=== PATIENT | female | born 1995 | race Caucasian/White ===

== ENCOUNTER 2016-07-06 16:04 | Emergency (ER) | payer MEDICAID ==
[2016-07-06 16:40] VITALS: O2SAT 99
[2016-07-06] MEDS ORDERED: Tylenol #3 Tablet PO ONE (18:04)
--- NOTE | 2016-07-06 18:04 | ERPHSYRPT ---
- History of Present Illness Time Seen by Provider: 07/06/16 16:50 Source: patient Exam Limitations: clinical condition Patient Subjective Stated Complaint: PT STATES ABOUT 2 HOURS AGO SHE FELL THROUGH HER PORCH AND HAS PAIN TO LEFT ANKLE WITH NUMBNESS TO TOP OF LEFT FOOT, HAS NOT TAKEN ANY HTING FOR PAIN Triage Nursing Assessment: PT ALERT, RESP EASY, SKIN W/D PINK. PT ABLE TO WALK IN WITH A LIMB,. NO SWELLING OR BRUISING TO ANKLE, MOVES TOES WELL , STRONG PULSE, PT TXTING ON PHONE DURING TRIAGE Physician History: PATIENT FELL THROUGH THE FLOOR OF HER PORCH SUSTAINED INJURY TO HER LEFT FOOT, ANKLE, AND COVINGTON. HAS ANKLE SWELLING AND PAIN UPON WEIGHT BEARING. Method of Injury: direct blow Occurred: hours ago Quality: constant Severity of Pain-Max: moderate Severity of Pain-Current: moderate Lower Extremities Pain: leg: left, foot: left, ankle: left Modifying Factors: Improves With: movement Associated Symptoms: other (PAIN UPON WEIGHT BEARING) Allergies/Adverse Reactions: [email or web address] Allergy (Uncoded 07/06/16 16:41) Home Medications: Paroxetine HCl [Paxil] 20 mg DAILY 07/06/16 [History] Hx Tetanus, Diphtheria Vaccination/Date Given: No Hx Influenza Vaccination/Date Given: No Hx Pneumococcal Vaccination/Date Given: No Immunizations Up to Date: Yes - Review of Systems Constitutional: No Fever, No Chills Eyes: No Symptoms Ears, Nose, & Throat: No Symptoms Respiratory: No Symptoms, No Cough, No Dyspnea Cardiac: No Symptoms, No Chest Pain, No Edema, No Syncope Abdominal/Gastrointestinal: No Abdominal Pain, No Nausea, No Vomiting, No Diarrhea Genitourinary Symptoms: No Dysuria Musculoskeletal: Injury, Joint Pain, Joint Swelling, No Back Pain, No Neck Pain Skin: No Rash Neurological: No Dizziness, No Focal Weakness, No Sensory Changes Psychological: No Symptoms Endocrine: No Symptoms All Other Systems: Reviewed and Negative - Past Medical History Pertinent Past Medical History: Yes Neurological History: Migraines Psycho-Social History: Depression Other Medical History: CHRONIC BACK PAIN - Past Surgical History Past Surgical History: No - Social History Smoking Status: Never smoker Exposure to second hand smoke: No Drug Use: none Patient Lives Alone: No - Female History Hx Last Menstrual Period: JUNE Hx Now: Yes ( due July 2013) - Nursing Vital Signs Nursing Vital Signs: Initial Vital Signs Temperature 98.0 F Temperature Source Oral Pulse Rate 100 Respiratory Rate 16 Blood Pressure [Right Arm] 144/60 Pain Intensity 10 - Physical Exam General Appearance: no apparent distress, alert Cardiovascular/Respiratory Exam: normal breath sounds Back Exam: No vertebral tenderness Legs Exam: left leg: soft tissue tenderness (DISTAL LEFT COVINGTON, NO SWELLING OR REBOUND TENDERNESS) Ankle Exam: left ankle: limited range of motion, pain, soft tissue tenderness, swelling (NO ECCHYMOSIS, DEFORMITY, NO JOINT LAXITY UPON VARUS/VALGUS STRESS) Foot Exam: left foot: soft tissue tenderness (PROXIMAL LEFT FOOT, NO ECCHYMOSIS , PEDIS PULSE 2+), swelling Neuro/Tendon Exam: normal sensation, normal motor functions Mental Status Exam: alert, oriented x 3, cooperative Skin Exam: normal color, warm, dry SpO2: 99 Oxygen Delivery: Room Air - Radiology Exams Left Ankle X-ray Interpretation: Interpreted by me, Negative, No Fracture Left Foot X-ray Interpretation: Interpreted by me, Negative, No Fracture Left Lower Leg X-ray Interpretation: Interpreted by me, Negative, No Fracture Ordered Tests: Active Orders 24 hr Category Date Time Status Crutches STAT Care 07/06/16 18:07 Ordered Splint STAT Care 07/06/16 18:05 Ordered ANKLE (3 VIEWS) Stat Exams 07/06/16 17:10 Taken FOOT (MINIMUM 3 VIEWS) Stat Exams 07/06/16 17:10 Taken LOWER LEG Stat Exams 07/06/16 17:11 Taken Medication Summary Discontinued Medications Generic Name Dose Route Start Last Admin Trade Name Freq PRN Reason Stop Dose Admin Acetaminophen/Codeine Phosphate 1 tab 07/06/16 18:04 Tylenol #3 Tablet PO 07/06/16 18:05 STAT ONE - Progress Progress: pain not gone completely Progress Note: 07/06/16 18:15 PATIENT GIVEN VELCRO ANKLE SPLINT, CRUTCHES Counseled pt/family regarding: diagnosis, need for follow-up, rad results - Departure Time of Disposition: 18:25 Departure Disposition: Home Clinical Impression: CONTUSION/STRAIN LEFT ANKLE/FOOT Condition: Stable Critical Care Time: No Additional Instructions: AMBULATE WITH CRUTCHES NONWEIGHT BEARING LEFT LEG FOR 5-7 DAYS. WEAR VELCRO ANKLE SPLINT FOR COMFORT. REMOVE SPLINT AND APPLY ICE OVER FOOT AND ANKLE SWELLING EVERY 4 HOURS, 30 MINUTES FOR 48 HOURS. TYLENOL #3 EVERY 4 HOURS FOR PAIN NEEDED FOR SEVERE PAIN. MOTRIN 600MG EVERY 6 HOURS FOR MILD TO MODERATE PAIN. Prescriptions: Ibuprofen 600 mg PO Q6H PRN PRN #15 tablet PRN Reason: Pain Codeine Phosphate/APAP #3 [Tylenol #3 Tablet] 1 tab PO Q2H/PRN PRN #10 tablet PRN Reason: Pain
[2016-07-06] MEDS ORDERED: Tylenol #3 Tablet ONE (18:16)
[2016-07-06 18:33] VITALS: BP 130/68; PULSE 92
--- NOTE | 2016-07-07 08:41 | XRAY ---
Indication: Pain following fall. Comparison: September 11, 2014. 3 views of the left ankle demonstrates stable tiny heel spurs. No new/acute bony, articular, or soft tissue abnormalities.
--- NOTE | 2016-07-07 08:41 | XRAY ---
Indication: Pain and numbness following fall. Comparison: November 02, 2009. 3 nonweightbearing views of the left foot again demonstrates tiny heel spurs. No new/acute bony, articular, or soft tissue abnormalities.
--- NOTE | 2016-07-07 08:44 | XRAY ---
Indication: Pain following fall. Comparison: None 2 views of the left lower leg obtained. No bony, articular, or soft tissue abnormalities.
== END 2016-07-06 18:33 | disposition home or self-care (01) ==
LOC: ED 16:04
DX: S90.02XA Contusion of left ankle, initial encounter (principal); S93.402A Sprain of unspecified ligament of left ankle, initial encounter; S93.602A Unspecified sprain of left foot, initial encounter; S90.32XA Contusion of left foot, initial encounter; W13.3XXA Fall through floor, initial encounter
CPT/HCPCS: 73590; 73610; 73630; 99283

== ENCOUNTER 2018-12-27 21:30 | Emergency (ER) | payer MEDICAID, OTHER ==
--- NOTE | 2018-12-27 21:33 | ERPHSYRPT ---
- History of Present Illness Time Seen by Provider: 12/27/18 21:33 Historian: patient Exam Limitations: no limitations Physician History: 23 y/o morbidly obese white female presents with 2 to 3 weeks bilat lower abd pain. nausea intermittently present. no menstrual period in 5 months. pt has had a btl in past. no diarrhea, no vaginal discharge no urinary sx. no fever. Timing/Duration: week(s) (2 to 3) Abdominal Pain Onset Location: RLQ, LLQ, suprapubic Pain Radiation: no radiation Severity of Pain-Max: mild Severity of Pain-Current: mild Modifying Factors: Improves With: nothing Associated Symptoms: nausea, No diarrhea, No fever/chills, No headache, No shortness of breath, No vomiting, No weakness Previous symptoms: no prior history Allergies/Adverse Reactions: [email or web address] Allergy (Uncoded 12/27/18 21:50) Hx Tetanus, Diphtheria Vaccination/Date Given: No Hx Influenza Vaccination/Date Given: No Hx Pneumococcal Vaccination/Date Given: No - Review of Systems Constitutional: No Symptoms Eyes: No Symptoms Ears, Nose, & Throat: No Symptoms Respiratory: No Symptoms Cardiac: No Symptoms Abdominal/Gastrointestinal: Abdominal Pain (bilat lower quadrants), Nausea, No Vomiting, No Diarrhea Genitourinary Symptoms: No Symptoms Musculoskeletal: No Symptoms Skin: No Symptoms Neurological: No Symptoms Psychological: No Symptoms Endocrine: No Symptoms Hematologic/Lymphatic: No Symptoms Immunological/Allergic: No Symptoms All Other Systems: Reviewed and Negative - Past Medical History Pertinent Past Medical History: Yes Neurological History: Migraines ENT History: No Pertinent History Cardiac History: No Pertinent History Respiratory History: No Pertinent History Endocrine Medical History: No Pertinent History Musculoskeletal History: No Pertinent History GI Medical History: No Pertinent History History: No Pertinent History Psycho-Social History: Depression Female Reproductive Disorders: No Pertinent History Other Medical History: CHRONIC BACK PAIN - Past Surgical History Past Surgical History: No Neuro Surgical History: No Pertinent History Cardiac: No Pertinent History Respiratory: No Pertinent History Gastrointestinal: No Pertinent History Genitourinary: No Pertinent History Musculoskeletal: No Pertinent History Female Surgical History: No Pertinent History - Social History Smoking Status: Never smoker Exposure to second hand smoke: No Drug Use: none Patient Lives Alone: No - Nursing Vital Signs Nursing Vital Signs: Initial Vital Signs Temperature 98.6 F 12/27/18 21:38 Pulse Rate 99 H 12/27/18 21:38 Respiratory Rate 18 12/27/18 21:38 Blood Pressure 162/107 12/27/18 21:38 O2 Sat by Pulse Oximetry 98 12/27/18 21:38 Pain Scale Pain Intensity 10 - Physical Exam General Appearance: no apparent distress, alert, anxiety Eye Exam: PERRL/EOMI, eyes nml inspection Ears, Nose, Throat Exam: normal ENT inspection, moist mucous membranes Neck Exam: normal inspection, non-tender, supple, full range of motion Respiratory Exam: normal breath sounds, lungs clear, airway intact, No chest tenderness, No respiratory distress Cardiovascular Exam: regular rate/rhythm, normal heart sounds, normal peripheral pulses Gastrointestinal/Abdomen Exam: soft, normal bowel sounds, tenderness (mild bilat lower quad), guarding, No rebound Pelvic Exam: not done Rectal Exam: not done Back Exam: normal inspection, normal range of motion, No CVA tenderness, No vertebral tenderness Extremity Exam: normal inspection, normal range of motion, pelvis stable Neurologic Exam: alert, oriented x 3, cooperative, grape picker II-XII nml as tested, normal mood/affect Skin Exam: normal color, warm, dry Lymphatic Exam: No adenopathy SpO2 Interpretation: normal O2 Delivery: Room Air Ordered Tests: Active Orders 24 hr Category Date Time Status IV Insertion STAT Care 12/27/18 21:57 Active ABDOMEN AND PELVIS W/0 CONTRAS [CT] Stat Exams 12/27/18 21:58 Taken AMYLASE Stat Lab 12/27/18 22:00 Completed CBC W DIFF Stat Lab 12/27/18 22:00 Completed CMP Stat Lab 12/27/18 22:00 Completed CULTURE,URINE Stat Lab 12/27/18 22:00 Received HCG,QUALITATIVE URINE Stat Lab 12/27/18 22:00 Completed LIPASE Stat Lab 12/27/18 22:00 Completed Lactic Acid Stat Lab 12/27/18 22:00 Completed UA W/RFX UR CULTURE Stat Lab 12/27/18 22:00 Completed Medication Summary Generic Name Dose Route Start Last Admin Trade Name Freq PRN Reason Stop Dose Admin Ceftriaxone Sodium/Dextrose 1 g in 50 mls @ 100 mls/hr 12/27/18 23:50 23:52 Rocephin 1 Gm-D5w 50 Ml Bag IV 12/28/18 00:19 100 mls/hr STAT STA 100 mls/hr Administration Discontinued Medications Generic Name Dose Route Start Last Admin Trade Name Derik PRN Reason Stop Dose Admin Sodium Chloride 1,000 mls @ 999 mls/hr 12/27/18 21:57 12/27/18 22:11 Sodium Chloride 0.9% 1000 Ml IV 12/27/18 22:57 999 mls/hr .Q1H1M STA Administration Sodium Chloride Confirm 12/27/18 22:05 Sodium Chloride 0.9% 1000 Ml Administered 12/27/18 22:06 Dose 1,000 mls @ ud .ROUTE .STK-MED ONE Ceftriaxone Sodium/Dextrose Confirm 12/27/18 23:51 Rocephin 1 Gm-D5w 50 Ml Bag Administered 12/27/18 23:52 Dose 1 g in 50 mls @ ud IV .STK-MED ONE Ondansetron HCl 4 mg 12/27/18 21:57 12/27/18 22:10 Zofran 4 Mg/2 Ml Vial IV 12/27/18 21:58 4 mg STAT ONE Administration Ondansetron HCl Confirm 12/27/18 22:05 Zofran 4 Mg/2 Ml Vial Administered 12/27/18 22:06 Dose 4 mg .ROUTE .STK-MED ONE Lab/Rad Data: Laboratory Result Diagrams 12/27/18 22:00 12/27/18 22:00 Laboratory Results 12/27/18 12/27/18 12/27/18 Range/Units 22:00 22:00 22:00 WBC (4.0-10.5) K/mm3 RBC (4.1-5.4) M/mm3 Hgb (12.0-16.0) gm/dl Hct (35-47) % MCV (78-100) fl MCH (26-32) pg MCHC (32-36) g/dl RDW (11.5-14.0) % Plt Count (150-450) K/mm3 MPV (6-9.5) fl Gran % (36.0-66.0) % Eos # (Auto) (0-0.5) Absolute Lymphs (auto) (1.0-4.6) Absolute Monos (auto) (0.0-1.3) Lymphocytes % (24.0-44.0) % Monocytes % (0.0-12.0) % Eosinophils % (0.00-5.0) % Basophils % (0.0-0.4) % Absolute Granulocytes (1.4-6.9) Basophils # (0-0.4) Sodium 139 (137-145) mmol/L Potassium 3.8 (3.5-5.1) mmol/L Chloride 104 (98-107) mmol/L Carbon Dioxide 26 (22-30) mmol/L Anion Gap 13.1 (5-15) MEQ/L BUN 17 (7-17) mg/dL Creatinine 0.66 (0.52-1.04) mg/dL Estimated GFR > 60.0 ML/MIN Glucose 90 (74-106) mg/dL Lactic Acid (0.4-2.0) Calcium 9.4 (8.4-10.2) mg/dL Total Bilirubin 0.30 (0.2-1.3) mg/dL AST 23 (14-36) U/L ALT 22 (0-35) U/L Alkaline Phosphatase 87 (38-126) U/L Serum Total Protein 8.6 H (6.3-8.2) g/dL Albumin 4.4 (3.5-5.0) g/dL Amylase 65 (30-110) U/L Lipase 53 (23-300) U/L Urine Color YELLOW (YELLOW) Urine Appearance CLOUDY (CLEAR) Urine pH 5.0 (5-6) Ur Specific Jefferson 1.026 (1.005-1.025) Urine Protein 100 (Negative) Urine Ketones NEGATIVE (NEGATIVE) Urine Blood LARGE (0-5) Norm/ul Urine Nitrite POSITIVE (NEGATIVE) Urine Bilirubin NEGATIVE (NEGATIVE) Urine Urobilinogen NEGATIVE (0-1) mg/dL Ur Leukocyte Esterase LARGE (NEGATIVE) Urine WBC (Auto) >100 (0-5) /HPF Urine RBC (Auto) >101 (0-2) /HPF U Epithel Cells (Auto) RARE (FEW) /HPF Urine Bacteria (Auto) MODERATE (NEGATIVE) /HPF Urine Mucus (Auto) SLIGHT (NEGATIVE) /HPF Urine Yeast (Budding) Few (NEGATIVE) /HPF Urine Culture Reflexed YES (NO) Urine Glucose NEGATIVE (NEGATIVE) mg/dL Urine HCG, Qual NEGATIVE (Negative) 12/27/18 12/27/18 Range/Units 22:00 22:00 WBC 13.6 H (4.0-10.5) K/mm3 RBC 4.81 (4.1-5.4) M/mm3 Hgb 12.9 (12.0-16.0) gm/dl Hct 40.0 (35-47) % MCV 83.2 (78-100) fl MCH 26.8 (26-32) pg MCHC 32.3 (32-36) g/dl RDW 14.0 (11.5-14.0) % Plt Count 364 (150-450) K/mm3 MPV 9.7 H (6-9.5) fl Gran % 76.2 H (36.0-66.0) % Eos # (Auto) 0.09 (0-0.5) Absolute Lymphs (auto) 2.32 (1.0-4.6) Absolute Monos (auto) 0.77 (0.0-1.3) Lymphocytes % 17.1 L (24.0-44.0) % Monocytes % 5.7 (0.0-12.0) % Eosinophils % 0.7 (0.00-5.0) % Basophils % 0.3 (0.0-0.4) % Absolute Granulocytes 10.34 H (1.4-6.9) Basophils # 0.04 (0-0.4) Sodium (137-145) mmol/L Potassium (3.5-5.1) mmol/L Chloride (98-107) mmol/L Carbon Dioxide (22-30) mmol/L Anion Gap (5-15) MEQ/L BUN (7-17) mg/dL Creatinine (0.52-1.04) mg/dL Estimated GFR ML/MIN Glucose (74-106) mg/dL Lactic Acid 1.5 (0.4-2.0) Calcium (8.4-10.2) mg/dL Total Bilirubin (0.2-1.3) mg/dL AST (14-36) U/L ALT (0-35) U/L Alkaline Phosphatase (38-126) U/L Serum Total Protein (6.3-8.2) g/dL Albumin (3.5-5.0) g/dL Amylase (30-110) U/L Lipase (23-300) U/L Urine Color (YELLOW) Urine Appearance (CLEAR) Urine pH (5-6) Ur Specific Jefferson (1.005-1.025) Urine Protein (Negative) Urine Ketones (NEGATIVE) Urine Blood (0-5) Norm/ul Urine Nitrite (NEGATIVE) Urine Bilirubin (NEGATIVE) Urine Urobilinogen (0-1) mg/dL Ur Leukocyte Esterase (NEGATIVE) Urine WBC (Auto) (0-5) /HPF Urine RBC (Auto) (0-2) /HPF U Epithel Cells (Auto) (FEW) /HPF Urine Bacteria (Auto) (NEGATIVE) /HPF Urine Mucus (Auto) (NEGATIVE) /HPF Urine Yeast (Budding) (NEGATIVE) /HPF Urine Culture Reflexed (NO) Urine Glucose (NEGATIVE) mg/dL Urine HCG, Qual (Negative) - Progress Progress: improved, pain not gone completely, re-examined Progress Note: 12/28/18 00:12 ct abd/pelvis-neg Counseled pt/family regarding: lab results, diagnosis, need for follow-up, rad results - Departure Departure Disposition: Home Clinical Impression: UTI (urinary tract infection) Condition: Stable Critical Care Time: No Referrals: MARIA C DIXON [Primary Care Provider] - Additional Instructions: drink plenty of fluids. follow up with primary doctor for further management Prescriptions: Ciprofloxacin [Cipro 500 MG] 500 mg PO BID #14 tablet
[2018-12-27] MEDS ORDERED: Zofran 4 MG/2 ML VIAL IV ONE (21:57)
[2018-12-27] MEDS ORDERED: Sodium Chloride 0.9% 1000 ML 1,000 ML IV STA (21:57)
[2018-12-27] MEDS ORDERED: Sodium Chloride 0.9% 1000 ML 1,000 ML ONE (22:05)
[2018-12-27] MEDS ORDERED: Zofran 4 MG/2 ML VIAL ONE (22:05)
[2018-12-27 22:16] LABS: BASOPHIL % 0.3 % (0.0-0.4); Basophil (Absolute #) 0.04 (0-0.4); Eosinophil % 0.7 % (0.00-5.0); Eosinophil (Absolute #) 0.09 (0-0.5); Granulocyte Absolute (ANC) 10.34 (1.4-6.9); Granulocytes % 76.2 % (36.0-66.0); Hemoglobin 12.9 gm/dl (12.0-16.0); Lymphocyte (Absolute #) 2.32 (1.0-4.6); Lymphocytes % 17.1 % (24.0-44.0); Mean Cell Volume 83.2 fl (78-100); Mean Corpuscular Hemoglobin 26.8 pg (26-32); Mean Corpuscular Hgb Concent. 32.3 g/dl (32-36); Mean Platelet Volume 9.7 fl (6-9.5); Monocyte (Absolute #) 0.77 (0.0-1.3); Monocytes % 5.7 % (0.0-12.0); Platelet Count 364 K/mm3 (150-450); Red Blood Count 4.81 M/mm3 (4.1-5.4); White Blood Count 13.6 K/mm3 (4.0-10.5)
[2018-12-27 22:28] LABS: SODIUM 139 mmol/L (137-145)
[2018-12-27 22:37] LABS: Appearance CLOUDY (CLEAR); Bacteria MODERATE /HPF (NEGATIVE); Bilirubin NEGATIVE (NEGATIVE); Blood LARGE Ery/ul (0-5); Epithelial Cells RARE /HPF (FEW); Glucose NEGATIVE (NEGATIVE); Ketones NEGATIVE (NEGATIVE); Leukocyte Esterase LARGE (NEGATIVE); Mucus SLIGHT /HPF (NEGATIVE); Nitrite POSITIVE (NEGATIVE); Protein,Urine Dip 100 (Negative); Specific Gravity 1.026 (1.005-1.025); Urobilinogen NEGATIVE mg/dL (0-1); WBC >100 /HPF (0-5)
[2018-12-27 22:38] LABS: Budding Yeast Few /HPF (NEGATIVE); RBC >101 /HPF (0-2)
[2018-12-27 23:18] LABS: ALBUMIN 4.4 g/dL (3.5-5.0); ALKALINE PHOSPHATASE 87 U/L (38-126); AMYLASE 65 U/L (30-110); ANION GAP 13.1 MEQ/L (5-15); BLOOD UREA NITROGEN 17 mg/dL (7-17); CHLORIDE 104 mmol/L (98-107); Calcium 9.4 mg/dL (8.4-10.2); Carbon Dioxide 26 mmol/L (22-30); Creatinine 1 0.66 mg/dL (0.52-1.04); Glucose 90 mg/dL (74-106); LIPASE 53 U/L (23-300); Potassium 3.8 mmol/L (3.5-5.1); SGOT/AST 23 U/L (14-36); SGPT/ALT 22 U/L (0-35); Total Protein 8.6 g/dL (6.3-8.2)
[2018-12-27] MEDS ORDERED: ROCEPHIN 1 Gm-D5w 50 ml Bag** 1 G/50 ML IVPB IV STA (23:50)
[2018-12-27] MEDS ORDERED: ROCEPHIN 1 Gm-D5w 50 ml Bag** 1 G/50 ML IVPB IV ONE (23:51)
[2018-12-28 00:31] VITALS: BP 118/77; PULSE 112; O2SAT 98
--- NOTE | 2018-12-28 09:44 | XRAY ---
Exam: CT of the abdomen and pelvis without IV contrast from 12/27/2018. CTDI: 28.13 mGy. Comparison: CT of the abdomen and pelvis from 04/16/2015. Indication: 23-year-old female with lower abdominal pain 2 weeks associated with nausea. White blood cell count is mildly elevated at 13,600. The patient has a history of prior tubal ligation and 2 prior sections. Technique: Non-IV contrast axial images were obtained through the abdomen and pelvis. Reconstructed coronal and sagittal images were created and reviewed. Findings: The patient is morbidly obese. The CT machine grainer image reveals minimal rotary dextroscoliosis centered at L1. The lung bases reveal a calcified granuloma within the medial aspect of the left posterior lung sulcus. There are also at least 3 small granulomatous calcifications within the left infrahilar projection. The remainder of the lung bases appears clear. Assessment of the solid organs is limited without the use of IV contrast. The liver has a prominent inferior extension of the right lobe representing a normal variant (Crispin's lobe). The remainder of the liver appears grossly unremarkable. No intrahepatic biliary duct distention is seen. The gallbladder is minimally distended and reveals no dense calcifications within it. Greatest transverse diameter of the spleen is 14.9 cm suggesting mild splenomegaly. No focal splenic mass is seen. I believe there is a small round splenule adjacent to the medial aspect of the lower portion of the spleen on axial image #29. This is unchanged. The pancreas and adrenal glands appear unremarkable. The kidneys are unremarkable size and shape. No renal calculi or hydronephrosis is seen. The right kidney axis is more transverse than usually seen. However, this is not significant. No gross renal mass is seen. The ureters appear of normal diameter without ureterolith. The abdominal aorta is of normal diameter. No abnormal retroperitoneal lymphadenopathy is seen. No free intraperitoneal air or ventral abdominal wall hernia is seen. Some air is seen within the appendix on axial images #43 through #46. I see no findings of acute appendicitis. There is no evidence of bowel obstruction or bowel wall thickening. Some scattered stool is seen throughout the colon. No suspicious fluid collection or free intraperitoneal fluid is seen. The uterus is anteflexed and tilted mildly to the left of midline. Both ovaries are identified and reveal no significant abnormality. No other no abnormal pelvic adnexal mass or enlarged pelvic lymph nodes are seen. The urinary bladder appears unremarkable. The inguinal and femoral regions appear unremarkable. The skeleton reveals no acute fracture or aggressive bone lesion. In addition to the minimal scoliosis, I believe there is some early degenerative disc disease at L4-L5 and mild bilateral facet joint arthropathy at L5-S1. There is also mild to moderate anterior lateral vertebral endplate spurring within the visualized lower thoracic spine. Impression: 1. No acute process is seen within the abdomen or pelvis. The appendix appears unremarkable, and I see no evidence of ovarian cyst or inflammatory changes. 2. Mild splenomegaly, old healed granulomatous disease at the left lung base, and a Crispin's lobe configuration of the right lobe of the liver (normal variant) are seen. 3. Skeletal findings, as discussed above. 4. Morbid obesity.
== END 2018-12-28 00:37 | disposition home or self-care (01) ==
LOC: ED 21:30
DX: N39.0 Urinary tract infection, site not specified (principal)
CPT/HCPCS: 36000; 36415; 74176; 80053; 81001; 82150; 83605; 83690; 84703; 85025; 87077; 87086; 87186; 96360; 96365; 96374; 99284; J0696; J2405

== ENCOUNTER 2020-05-16 20:13 | Emergency (ER) | payer OTHER ==
[2020-05-16] MEDS ORDERED: BABY ASPIRIN 81 MG CHEW PO ONE (20:16)
--- NOTE | 2020-05-16 20:16 | ERPHSYRPT ---
- History of Present Illness Time Seen by Provider: 05/16/20 20:15 Historian: patient Exam Limitations: no limitations Physician History: This is a morbidly obese 25-year-old white female who was only on depression medication chronically and presents with nonradiating upper sternal central chest pain that is sharp. She is never had this pain in the past. She denies s hortness of breath. She denies cough. She denies fever. Patient states that the level of her discomfort is approximately 7 out of 10 and is relatively constant. Patient has no bleeding or clotting disorders. She has not taking any thing to help relieve her pain. She has no primary cardiac disease. Patient denies any new weight loss medication or treatment. She denies illicit drug use. Timing/Duration: yesterday Activities at Onset: none Quality: sharpness Location: substernal Chest Pain Radiation: no radiation Severity of Pain-Max: moderate Severity of Pain-Current: moderate Modifying Factors: Improves With: nothing Associated Symptoms: denies symptoms Prior Chest Pain/Cardiac Workup: no prior chest pain, no prior cardiac workup Nitro Today/Relief: no nitro taken today Aspirin Treatment Today: no aspirin today Allergies/Adverse Reactions: jalapenos Allergy (Mild, Uncoded 05/16/20 20:14) Home Medications: Venlafaxine HCl [Venlafaxine HCl ER] 150 mg PO DAILY 05/16/20 [History] Hx Tetanus, Diphtheria Vaccination/Date Given: No Hx Influenza Vaccination/Date Given: No Hx Pneumococcal Vaccination/Date Given: No Travel Risk - International Travel Have you traveled outside of the country in past 3 weeks: No - Coronavirus Screening Are you exhibiting any of the following symptoms?: No Close contact with a COVID-19 positive Pt in past 14-21 Days: No - Review of Systems Constitutional: No Symptoms Eyes: No Symptoms Ears, Nose, & Throat: No Symptoms Respiratory: No Symptoms Cardiac: Chest Pain Abdominal/Gastrointestinal: No Symptoms Genitourinary Symptoms: No Symptoms Musculoskeletal: No Symptoms Skin: No Symptoms Neurological: No Symptoms Psychological: No Symptoms Endocrine: No Symptoms Hematologic/Lymphatic: No Symptoms Immunological/Allergic: No Symptoms All Other Systems: Reviewed and Negative - Past Medical History Pertinent Past Medical History: Yes Neurological History: Migraines ENT History: No Pertinent History Cardiac History: No Pertinent History Respiratory History: No Pertinent History Endocrine Medical History: No Pertinent History Musculoskeletal History: No Pertinent History GI Medical History: No Pertinent History History: No Pertinent History Psycho-Social History: Depression Female Reproductive Disorders: No Pertinent History Other Medical History: CHRONIC BACK PAIN - Past Surgical History Past Surgical History: No Neuro Surgical History: No Pertinent History Cardiac: No Pertinent History Respiratory: No Pertinent History Gastrointestinal: No Pertinent History Genitourinary: No Pertinent History Musculoskeletal: No Pertinent History Female Surgical History: No Pertinent History - Social History Smoking Status: Never smoker Exposure to second hand smoke: No Drug Use: none Patient Lives Alone: No - Nursing Vital Signs Nursing Vital Signs: Initial Vital Signs Temperature 98.6 F 05/16/20 20:18 Pulse Rate 120 H 05/16/20 20:18 Respiratory Rate 24 05/16/20 20:18 Blood Pressure 146/112 05/16/20 20:18 O2 Sat by Pulse Oximetry 97 05/16/20 20:18 Pain Scale Pain Intensity 7 - Physical Exam General Appearance: no apparent distress, alert, anxiety, obese Eye Exam: PERRL/EOMI, eyes nml inspection Ears, Nose, Throat Exam: normal ENT inspection, moist mucous membranes Neck Exam: normal inspection, non-tender, supple, full range of motion Respiratory Exam: normal breath sounds, chest tenderness, lungs clear, airway intact, No respiratory distress Cardiovascular Exam: tachycardia Gastrointestinal/Abdomen Exam: soft, normal bowel sounds, No tenderness Pelvic Exam: not done Rectal Exam: not done Back Exam: normal inspection, normal range of motion, No CVA tenderness, No vertebral tenderness Extremity Exam: normal inspection, normal range of motion, pelvis stable Neurologic Exam: alert, oriented x 3, cooperative, superintendent tests II-XII nml as tested, normal mood/affect, nml cerebellar function, nml station & gait, sensation nml Skin Exam: normal color, warm, dry Lymphatic Exam: No adenopathy SpO2 Interpretation: normal O2 Delivery: Room Air - Course Nursing assessment & vital signs reviewed: Yes EKG Interpreted by Me: RATE ([id number]), Sinus Tach, NORMAL AXIS, prolonged QT interval (Borderline), NORMAL QRS, NORMAL ST-T, Other (No acute ischemic changes. When compared to EKG dated 02/11/2012 today's EKG shows sinus tachycardia that is mild. In addition there is new borderline prolonged QT interval.) Ordered Tests: Active Orders 24 hr Category Date Time Status Prescriptionist STAT Care 05/16/20 20:17 Active EKG-ER Only STAT Care 05/16/20 20:16 Active IV Insertion STAT Care 05/16/20 20:16 Active CHEST 1 VIEW (PORTABLE) Stat Exams 05/16/20 20:16 Taken CHEST WITH CONTRAST [CT] Stat Exams 05/16/20 21:21 Taken CBC W DIFF Stat Lab 05/16/20 20:35 Completed CMP Stat Lab 05/16/20 20:35 Completed D-DIMER QUANTITATIVE Stat Lab 05/16/20 20:35 Completed NT PRO BNP Stat Lab 05/16/20 20:35 Completed PROTIME WITH INR Stat Lab 05/16/20 20:35 Completed TROPONIN Q3H Lab 05/16/20 20:35 Completed TROPONIN Q3H Lab 05/16/20 23:30 Ordered TROPONIN Q3H Lab 05/17/20 02:30 Ordered TROPONIN Q3H Lab 05/17/20 05:30 Ordered TROPONIN Q3H Lab 05/17/20 08:30 Ordered Medication Summary Discontinued Medications Generic Name Dose Route Start Last Admin Trade Name Freq PRN Reason Stop Dose Admin Aspirin 324 mg 05/16/20 20:16 05/16/20 21:14 Baby Aspirin 81 Mg Chew PO 05/16/20 20:17 324 mg STAT ONE Administration Sodium Chloride 500 mls @ 500 mls/hr 05/16/20 21:21 05/16/20 23:03 Sodium Chloride 0.9% 500 Ml IV 05/16/20 22:20 Infused .Q1H ONE Infusion Sodium Chloride Confirm 05/16/20 21:26 Sodium Chloride 0.9% 500 Ml Administered 05/16/20 21:27 Dose 500 mls @ ud IV .STK-MED ONE Morphine Sulfate 2 mg 05/16/20 20:46 05/16/20 21:21 Morphine Sulfate 2 Mg Inj IV 05/16/20 20:47 2 mg STAT ONE Administration Morphine Sulfate Confirm 05/16/20 21:20 Morphine Sulfate 2 Mg Inj Administered 05/16/20 21:21 Dose 2 mg .ROUTE .STK-MED ONE Nitroglycerin 0.4 mg 05/16/20 20:46 05/16/20 21:19 Nitrostat 0.4 Mg (Ed) SL 05/16/20 20:47 0.4 mg STAT ONE Administration Ondansetron HCl 4 mg 05/16/20 20:46 05/16/20 21:21 Zofran 4 Mg/2 Ml Vial IV 05/16/20 20:47 4 mg STAT ONE Administration Ondansetron HCl Confirm 05/16/20 21:20 Zofran 4 Mg/2 Ml Vial Administered 05/16/20 21:21 Dose 4 mg .ROUTE .STK-MED ONE Lab/Rad Data: Laboratory Result Diagrams 05/16/20 20:35 05/16/20 20:35 Laboratory Results 05/16/20 05/16/20 05/16/20 Range/Units 20:35 20:35 20:35 WBC (4.0-10.5) K/mm3 RBC (4.1-5.4) M/mm3 Hgb (12.0-16.0) gm/dl Hct (35-47) % MCV (78-100) fl MCH (26-32) pg MCHC (32-36) g/dl RDW (11.5-14.0) % Plt Count (150-450) K/mm3 MPV (7.5-11.0) fl Gran % (36.0-66.0) % Eos # (Auto) (0-0.5) Absolute Lymphs (auto) (1.0-4.6) Absolute Monos (auto) (0.0-1.3) Lymphocytes % (24.0-44.0) % Monocytes % (0.0-12.0) % Eosinophils % (0.00-5.0) % Basophils % (0.0-0.4) % Absolute Granulocytes (1.4-6.9) Basophils # (0-0.4) PT 12.9 H (9.95-12.35) SECONDS INR 1.14 (0.8-3.0) D-Dimer 834 H* (215-500) ng/mL Sodium 138 (137-145) mmol/L Potassium 3.6 (3.5-5.1) mmol/L Chloride 102 (98-107) mmol/L Carbon Dioxide 28 (22-30) mmol/L Anion Gap 12.2 (5-15) MEQ/L BUN 10 (7-17) mg/dL Creatinine 0.75 (0.52-1.04) mg/dL Estimated GFR > 60.0 ML/MIN Glucose 109 H (74-106) mg/dL Calcium 9.8 (8.4-10.2) mg/dL Total Bilirubin 0.20 (0.2-1.3) mg/dL AST 25 (14-36) U/L ALT 23 (0-35) U/L Alkaline Phosphatase 97 (38-126) U/L Troponin I < 0.012 (0.000-0.034) ng/mL NT-Pro-B Natriuret Pep 45.8 (0-450) pg/mL Serum Total Protein 8.1 (6.3-8.2) g/dL Albumin 4.1 (3.5-5.0) g/dL 05/16/20 Range/Units 20:35 WBC 8.1 (4.0-10.5) K/mm3 RBC 4.11 (4.1-5.4) M/mm3 Hgb 10.4 L (12.0-16.0) gm/dl Hct 33.8 L (35-47) % MCV 82.2 (78-100) fl MCH 25.3 L (26-32) pg MCHC 30.8 L (32-36) g/dl RDW 14.5 H (11.5-14.0) % Plt Count 326 (150-450) K/mm3 MPV 8.5 (7.5-11.0) fl Gran % 69.0 H (36.0-66.0) % Eos # (Auto) 0.12 (0-0.5) Absolute Lymphs (auto) 1.80 (1.0-4.6) Absolute Monos (auto) 0.56 (0.0-1.3) Lymphocytes % 22.2 L (24.0-44.0) % Monocytes % 6.9 (0.0-12.0) % Eosinophils % 1.5 (0.00-5.0) % Basophils % 0.4 (0.0-0.4) % Absolute Granulocytes 5.58 (1.4-6.9) Basophils # 0.03 (0-0.4) PT (9.95-12.35) SECONDS INR (0.8-3.0) D-Dimer (215-500) ng/mL Sodium (137-145) mmol/L Potassium (3.5-5.1) mmol/L Chloride (98-107) mmol/L Carbon Dioxide (22-30) mmol/L Anion Gap (5-15) MEQ/L BUN (7-17) mg/dL Creatinine (0.52-1.04) mg/dL Estimated GFR ML/MIN Glucose (74-106) mg/dL Calcium (8.4-10.2) mg/dL Total Bilirubin (0.2-1.3) mg/dL AST (14-36) U/L ALT (0-35) U/L Alkaline Phosphatase (38-126) U/L Troponin I (0.000-0.034) ng/mL NT-Pro-B Natriuret Pep (0-450) pg/mL Serum Total Protein (6.3-8.2) g/dL Albumin (3.5-5.0) g/dL - Progress Progress: improved, re-examined Air Movement: good Progress Note: 05/16/20 20:58 Chest x-ray shows no acute cardiopulmonary process. 05/16/20 23:18 CAT scan of the chest with intravenous contrast shows no pulmonary embolism and no acute cardiopulmonary process. Blood Culture(s) Obtained: No Antibiotics given: No Counseled pt/family regarding: lab results, diagnosis, need for follow-up, rad results - Departure Departure Disposition: Home Clinical Impression: Chest pain Condition: Stable Critical Care Time: No Referrals: MARIA C DIXON [Primary Care Provider] - Additional Instructions: Take your medication as prescribed. Call your primary prescribing physician tomorrow morning to make arrangements for follow-up evaluation and management.
[2020-05-16 20:39] LABS: Absolute Neutrophil Ct (ANC) 5.58 (1.4-6.9); BASOPHIL % 0.4 % (0.0-0.4); Basophil (Absolute #) 0.03 (0-0.4); Eosinophil % 1.5 % (0.00-5.0); Eosinophil (Absolute #) 0.12 (0-0.5); Hematocrit 33.8 % (35-47); Hemoglobin 10.4 gm/dl (12.0-16.0); Lymphocytes % 22.2 % (24.0-44.0); Mean Cell Volume 82.2 fl (78-100); Mean Corpuscular Hemoglobin 25.3 pg (26-32); Mean Corpuscular Hgb Concent. 30.8 g/dl (32-36); Mean Platelet Volume 8.5 fl (7.5-11.0); Monocyte (Absolute #) 0.56 (0.0-1.3); Monocytes % 6.9 % (0.0-12.0); Platelet Count 326 K/mm3 (150-450); Red Blood Count 4.11 M/mm3 (4.1-5.4); Red Cell Distribution Width 14.5 % (11.5-14.0); White Blood Count 8.1 K/mm3 (4.0-10.5)
[2020-05-16] MEDS ORDERED: Nitrostat 0.4 MG (ED) SL ONE (20:46)
[2020-05-16] MEDS ORDERED: MORPHINE SULFATE 2 MG INJ IV ONE (20:46)
[2020-05-16] MEDS ORDERED: Zofran 4 MG/2 ML VIAL IV ONE (20:46)
[2020-05-16 20:57] LABS: INR 1.14 (0.8-3.0); PROTIME 12.9 SECONDS (9.95-12.35)
[2020-05-16 21:11] LABS: ALBUMIN 4.1 g/dL (3.5-5.0); ALKALINE PHOSPHATASE 97 U/L (38-126); ANION GAP 12.2 MEQ/L (5-15); BLOOD UREA NITROGEN 10 mg/dL (7-17); CHLORIDE 102 mmol/L (98-107); Calcium 9.8 mg/dL (8.4-10.2); Carbon Dioxide 28 mmol/L (22-30); Creatinine 1 0.75 mg/dL (0.52-1.04); EST GLOMERULAR FILTRATION RATE > 60.0 ML/MIN; Glucose 109 mg/dL (74-106); NT PRO BNP 45.8 pg/mL (0-450); Potassium 3.6 mmol/L (3.5-5.1); SGOT/AST 25 U/L (14-36); SGPT/ALT 23 U/L (0-35); SODIUM 138 mmol/L (137-145); Total Protein 8.1 g/dL (6.3-8.2)
[2020-05-16] MEDS ORDERED: MORPHINE SULFATE 2 MG INJ ONE (21:20)
[2020-05-16] MEDS ORDERED: Zofran 4 MG/2 ML VIAL ONE (21:20)
[2020-05-16] MEDS ORDERED: Sodium Chloride 0.9% 500 ML 500 ML IV ONE ×2 (21:21→21:26)
[2020-05-16 21:26] VITALS: O2SAT 98
[2020-05-16 23:42] VITALS: BP 121/71; PULSE 113
--- NOTE | 2020-05-17 09:07 | XRAY ---
Indication: Short of breath, chest pain, and elevated d-dimer. Multiple contiguous axial images obtained through the chest using 80 cc Isovue 370 contrast and PE protocol. Comparison: None There is suboptimal opacification of the pulmonary arteries limiting evaluation of the more distal branches. No obvious central pulmonary embolus. Heart is not enlarged. Aorta is normal in course and caliber. Tiny left perihilar calcified nodes. No pathologic mediastinal/hilar lymphadenopathy. Lungs are inflated with minimal left base fibrosis/scarring and left posterior gutter calcified granuloma. No suspicious pulmonary mass, infiltrate, or effusion. Bony thorax intact with minimal degenerative changes throughout the spine. Limited upper abdomen demonstrates mild fatty liver and 15.6 cm splenomegaly. Impression: 1. Pulmonary embolus evaluation limited due to suboptimal opacification. No obvious pulmonary embolus. 2. No acute cardiopulmonary abnormalities. 3. Incidental fatty liver, splenomegaly, and old granulomatous disease. Comment: Preliminary interpretation was made by [facility]. No critical discrepancy.
--- NOTE | 2020-05-17 09:08 | XRAY ---
Indication: Short of breath and chest pain. Comparison: None Portable chest demonstrates normal heart, lungs, and bony thorax.
== END 2020-05-16 23:42 | disposition home or self-care (01) ==
LOC: ED 20:13
DX: R07.9 Chest pain, unspecified (principal); R00.0 Tachycardia, unspecified; E66.9 Obesity, unspecified
CPT/HCPCS: 36000; 36415; 71045; 71260; 80053; 83880; 84484; 85025; 85379; 85610; 93005; 93041; 96360; 96374; 96375; 99285; J2270; J2405; A9270-GY

== ENCOUNTER 2020-10-02 11:27 | Emergency (ER) | payer OTHER ==
--- NOTE | 2020-10-02 11:31 | ERPHSYRPT ---
- History of Present Illness Time Seen by Provider: 10/02/20 11:31 Source: patient Exam Limitations: no limitations Physician History: This is a 25-year-old morbidly obese white female who was walking and twisted her left ankle in a hole prior to arrival to the emergency department. Patient states the pain was severe enough to cause her to have vomiting on 2 different episodes prior to arrival. Patient states it hurts to bear weight. Method of Injury: twisted Occurred: just prior to arrival Quality: constant, aching Severity of Pain-Max: moderate Severity of Pain-Current: moderate Lower Extremities Pain: ankle: left Modifying Factors: Improves With: movement Associated Symptoms: popping sensation, other Allergies/Adverse Reactions: jalapenos Allergy (Mild, Uncoded 10/02/20 11:48) Home Medications: Venlafaxine HCl [Venlafaxine HCl ER] 150 mg PO DAILY 05/16/20 [History] Hx Tetanus, Diphtheria Vaccination/Date Given: No Hx Influenza Vaccination/Date Given: No Hx Pneumococcal Vaccination/Date Given: No Travel Risk - International Travel Have you traveled outside of the country in past 3 weeks: No - Coronavirus Screening Are you exhibiting any of the following symptoms?: No Close contact with a COVID-19 positive Pt in past 14-21 Days: No - Review of Systems Constitutional: No Symptoms Eyes: No Symptoms Ears, Nose, & Throat: No Symptoms Respiratory: No Symptoms Cardiac: No Symptoms Abdominal/Gastrointestinal: No Symptoms Genitourinary Symptoms: No Symptoms Musculoskeletal: Injury (Left ankle) Skin: No Symptoms Neurological: No Symptoms Psychological: No Symptoms Endocrine: No Symptoms Hematologic/Lymphatic: No Symptoms Immunological/Allergic: No Symptoms All Other Systems: Reviewed and Negative - Past Medical History Pertinent Past Medical History: Yes Neurological History: Migraines ENT History: No Pertinent History Cardiac History: No Pertinent History Respiratory History: No Pertinent History Endocrine Medical History: No Pertinent History Musculoskeletal History: No Pertinent History GI Medical History: No Pertinent History History: No Pertinent History Psycho-Social History: Depression Female Reproductive Disorders: No Pertinent History Other Medical History: CHRONIC BACK PAIN - Past Surgical History Past Surgical History: No Neuro Surgical History: No Pertinent History Cardiac: No Pertinent History Respiratory: No Pertinent History Gastrointestinal: No Pertinent History Genitourinary: No Pertinent History Musculoskeletal: No Pertinent History Female Surgical History: No Pertinent History Other Surgical History: c sections x2 - Social History Smoking Status: Never smoker Exposure to second hand smoke: No Drug Use: none Patient Lives Alone: No - Nursing Vital Signs Nursing Vital Signs: Initial Vital Signs Temperature 98.0 F 10/02/20 11:42 Pulse Rate 114 H 10/02/20 11:42 Respiratory Rate 18 10/02/20 11:42 Blood Pressure 168/92 10/02/20 11:42 O2 Sat by Pulse Oximetry 98 10/02/20 11:42 Pain Scale Pain Intensity 10 - Physical Exam General Appearance: no apparent distress, alert, anxiety, obese Eyes, Ears, Nose, Throat Exam: normal ENT inspection, moist mucous membranes Neck Exam: normal inspection, non-tender, supple, full range of motion Cardiovascular/Respiratory Exam: chest non-tender, no respiratory distress Gastrointestinal/Abdominal Exam: non-tender Back Exam: normal inspection, normal range of motion, No CVA tenderness, No vertebral tenderness Hips Exam: bilateral: non-tender, normal inspection, normal range of motion, no evidence of injury Legs Exam: bilateral leg: non-tender, normal inspection, normal range of motion, no evidence of injury Knees Exam: bilateral knee: non-tender, normal inspection, normal range of motion, no evidence of injury Ankle Exam: right ankle: non-tender, normal inspection, normal range of motion, no evidence of injury, left ankle: limited range of motion, soft tissue tenderness, swelling Foot Exam: bilateral foot: non-tender, normal inspection, normal range of motion, no evidence of injury Neuro/Tendon Exam: normal sensation, normal motor functions, normal tendon functions, responds to pain, no evidence tendon injury, No motor deficit, No sensory deficit Mental Status Exam: alert, oriented x 3, cooperative Skin Exam: normal color, warm, dry SpO2 Interpretation: normal O2 Delivery: Room Air - Course Nursing assessment & vital signs reviewed: Yes Ordered Tests: Active Orders 24 hr Category Date Time Status Cirilo Bandage Application -[facility] STAT Care 10/02/20 12:11 Ordered ANKLE (3 VIEWS) Stat Exams 10/02/20 11:55 Completed - Progress Progress: improved, pain not gone completely Progress Note: 10/02/20 12:16 X-ray left ankle reveals no evidence of any acute fracture or dislocation. Counseled pt/family regarding: diagnosis, need for follow-up, rad results - Departure Departure Disposition: Home Clinical Impression: Left ankle sprain Condition: Stable Critical Care Time: No Referrals: ZACK,MARIA C F [Primary Care Provider] - Additional Instructions: Ice pack to left ankle 3 times a day for the next 48 hours. Add ibuprofen 600 mg 3 times a day with food for the next 48 hours. Keep left lower leg elevated above the level of your heart when not up and ambulating. Follow-up with Dr. Krishnamurthy, podiatry in his office for persistent symptoms. Call to make an appointment. Prescriptions: Hydrocodone/APAP 5/325 [Ashley 5/325 mg] 1 each PO Q8H PRN PRN #6 tablet MDD 3 PRN Reason: Pain
[2020-10-02 11:48] VITALS: BP 168/92; PULSE 114; O2SAT 98
--- NOTE | 2020-10-02 12:07 | XRAY ---
Indication: Pain following fall. Comparison: July 06, 2016. 3 view left ankle demonstrates new moderate soft tissue swelling with stable tiny heel spurs. No other bony, articular, or soft tissue abnormalities.
[2020-10-02] MEDS ORDERED: NORCO 5/325 MG PO ONE (12:10)
[2020-10-02] MEDS ORDERED: NORCO 5/325 MG ONE (12:29)
== END 2020-10-02 12:45 | disposition home or self-care (01) ==
LOC: ED 11:27
DX: S93.402A Sprain of unspecified ligament of left ankle, initial encounter (principal); X50.1XXA Overexertion from prolonged static or awkward postures, initial encounter; Y93.89 Activity, other specified; Y92.89 Other specified places as the place of occurrence of the external cause
CPT/HCPCS: 73610; 99283; A9270-GY

== ENCOUNTER 2021-03-15 21:15 | Observation (INO) | payer OTHER ==
[2021-03-15] MEDS ORDERED: Zofran 4 MG/2 ML VIAL IV ONE (21:24)
[2021-03-15] MEDS ORDERED: Sodium Chloride 0.9% 1000 ML 1,000 ML IV STA ×2 (21:24→23:53)
[2021-03-15] MEDS ORDERED: BABY ASPIRIN 81 MG CHEW PO ONE (21:26)
[2021-03-15] MEDS ORDERED: Nitrostat 0.4 MG (ED) SL ONE (21:26)
[2021-03-15] MEDS ORDERED: Zofran 4 MG/2 ML VIAL ONE (21:28)
[2021-03-15] MEDS ORDERED: Sodium Chloride 0.9% 1000 ML 1,000 ML ONE (21:28)
--- NOTE | 2021-03-15 21:34 | ERPHSYRPT ---
- History of Present Illness Time Seen by Provider: 03/15/21 21:29 Historian: patient, EMS Exam Limitations: no limitations Physician History: pt is 25 yr old without CAD Hx but prior heart valve concern on ER visit recently here ( 10 mths ago). No cardiac f/u. but had CP and SOBreath all day today then brief LOC at home and then came by EMS here. Had CT here at prior ER visit for PE rule out. - 10 months ago No prior PE or DVT. + family Hx and Hptn. No abd pain but some Nausea. Abd nontender. Chest clear . ext without edema and neg homans. Heart score is 3 - 1 for Hx, 1 for EKG, 1 for rsk factors. Timing/Duration: today Location: substernal Chest Pain Radiation: no radiation Severity of Pain-Max: moderate Severity of Pain-Current: moderate Modifying Factors: Improves With: nothing Associated Symptoms: nausea, syncope Prior Chest Pain/Cardiac Workup: recently seen/treated Nitro Today/Relief: 0.4 mg x 1, provided by ED Aspirin Treatment Today: 325 mg x 1, provided by ED Allergies/Adverse Reactions: jalapenos Allergy (Mild, Uncoded 03/15/21 21:17) Home Medications: No Reportable Medications [No Reported Medications] 03/15/21 [History] Hx Tetanus, Diphtheria Vaccination/Date Given: No Hx Influenza Vaccination/Date Given: No Hx Pneumococcal Vaccination/Date Given: No Travel Risk - Vaccine Status Have you recieved a Covid-19 vaccination: No - Review of Systems Constitutional: No Fever, No Chills Eyes: No Symptoms Ears, Nose, & Throat: No Symptoms Respiratory: Dyspnea, No Cough Cardiac: Chest Pain, No Edema, No Syncope Abdominal/Gastrointestinal: Nausea, No Abdominal Pain, No Vomiting, No Diarrhea Genitourinary Symptoms: No Dysuria Musculoskeletal: No Back Pain, No Neck Pain Skin: No Rash Neurological: No Dizziness, No Focal Weakness, No Sensory Changes Psychological: No Symptoms Endocrine: No Symptoms Hematologic/Lymphatic: No Symptoms Immunological/Allergic: No Symptoms All Other Systems: Reviewed and Negative - Past Medical History Pertinent Past Medical History: Yes Neurological History: Migraines ENT History: No Pertinent History Cardiac History: No Pertinent History Respiratory History: No Pertinent History Endocrine Medical History: No Pertinent History Musculoskeletal History: No Pertinent History GI Medical History: No Pertinent History History: No Pertinent History Psycho-Social History: Depression Female Reproductive Disorders: No Pertinent History Other Medical History: CHRONIC BACK PAIN - Past Surgical History Past Surgical History: No Neuro Surgical History: No Pertinent History Cardiac: No Pertinent History Respiratory: No Pertinent History Gastrointestinal: No Pertinent History Genitourinary: No Pertinent History Musculoskeletal: No Pertinent History Female Surgical History: No Pertinent History Other Surgical History: c sections x2 - Social History Smoking Status: Never smoker Exposure to second hand smoke: No Drug Use: none Patient Lives Alone: No - Female History Hx Now: No (HCG pending) - Nursing Vital Signs Nursing Vital Signs: Initial Vital Signs Pulse Rate 130 H 03/15/21 21:15 Respiratory Rate 16 03/15/21 21:15 Pain Scale Pain Intensity 4 - Physical Exam General Appearance: no apparent distress, alert Eye Exam: PERRL/EOMI, eyes nml inspection Ears, Nose, Throat Exam: normal ENT inspection, moist mucous membranes Neck Exam: normal inspection, non-tender, supple, full range of motion Respiratory Exam: normal breath sounds, lungs clear, No respiratory distress Cardiovascular Exam: regular rate/rhythm, normal heart sounds Gastrointestinal/Abdomen Exam: soft, No tenderness, No mass Pelvic Exam: deferred Rectal Exam: deferred Back Exam: normal inspection, No CVA tenderness, No vertebral tenderness Extremity Exam: normal inspection, normal range of motion Neurologic Exam: alert, oriented x 3, cooperative, normal mood/affect, sensation nml, No motor deficits Skin Exam: normal color, warm, dry SpO2 Interpretation: normal SpO2: 97 O2 Delivery: Room Air - Course Nursing assessment & vital signs reviewed: Yes EKG Interpreted by Me: Sinus Tach, Non-specific ST Changes, Other (low voltage) - Radiology Exams Chest X-ray Interpretation: Interpreted by me, Reviewed by me, No Pneumothorax, Other (interstitial infiltrates) - CT Exams Chest CT Interpretation: Tele-radiologist Report, No PE Ordered Tests: Active Orders 24 hr Category Date Time Status Process Controls Technician STAT Care 03/15/21 21:27 Active EKG-ER Only STAT Care 03/15/21 21:24 Active IV Insertion STAT Care 03/15/21 21:24 Active IV Insertion-2nd Peripheral STAT Care 03/15/21 22:02 Active Pulse Oximetry (ED) STAT Care 03/15/21 21:26 Active CHEST 1 VIEW (PORTABLE) Stat Exams 03/15/21 21:25 Taken CHEST WITH CONTRAST [CT] Stat Exams 03/15/21 22:24 Taken CBC Stat Lab 03/15/21 00:39 Completed CBC W DIFF Stat Lab 03/15/21 21:40 Completed CMP Stat Lab 03/15/21 21:40 Completed D-DIMER QUANTITATIVE Stat Lab 03/15/21 21:41 Completed HCG QUALITATIVE,SERUM Stat Lab 03/15/21 21:40 Completed Lactic Acid Stat Lab 03/15/21 21:24 Completed NT PRO BNP Stat Lab 03/15/21 21:41 Completed TROPONIN Q3H Lab 03/15/21 21:40 Completed TROPONIN Q3H Lab 03/16/21 00:39 Received TROPONIN Q3H Lab 03/16/21 03:30 Ordered TROPONIN Q3H Lab 03/16/21 06:30 Ordered TROPONIN Q3H Lab 03/16/21 09:30 Ordered UA W/RFX UR CULTURE Stat Lab 03/15/21 22:30 Completed Medication Summary Generic Name Dose Route Start Last Admin Trade Name Freq PRN Reason Stop Dose Admin Sodium Chloride 1,000 mls @ 999 mls/hr 03/15/21 23:53 03/16/21 00:06 Sodium Chloride 0.9% 1000 Ml IV 03/16/21 00:53 999 mls/hr .Q1H1M STA Administration Discontinued Medications Generic Name Dose Route Start Last Admin Trade Name Freq PRN Reason Stop Dose Admin Aspirin 324 mg 03/15/21 21:26 03/15/21 21:31 Aspirin 81 Mg Tab.Chew PO 03/15/21 21:27 324 mg STAT ONE Administration Sodium Chloride 1,000 mls @ 999 mls/hr 03/15/21 21:24 03/15/21 22:30 Sodium Chloride 0.9% 1000 Ml IV 03/15/21 22:24 Infused .Q1H1M STA Infusion Sodium Chloride Confirm 03/15/21 21:28 Sodium Chloride 0.9% 1000 Ml Administered 03/15/21 21:29 Dose 1,000 mls @ ud .ROUTE .STK-MED ONE Sodium Chloride Confirm 03/16/21 00:05 Sodium Chloride 0.9% 1000 Ml Administered 03/16/21 00:06 Dose 1,000 mls @ ud .ROUTE .STK-MED ONE Nitroglycerin 0.4 mg 03/15/21 21:26 03/15/21 21:31 Nitroglycerin 0.4 Mg (Ed) 0.4 Mg Tab.Subl SL 03/15/21 21:27 0.4 mg STAT ONE Administration Ondansetron HCl 4 mg 03/15/21 21:24 03/15/21 21:29 Ondansetron Hcl 4 Mg/2 Ml Vial IV 03/15/21 21:25 4 mg STAT ONE Administration Ondansetron HCl Confirm 03/15/21 21:28 Ondansetron Hcl 4 Mg/2 Ml Vial Administered 03/15/21 21:29 Dose 4 mg .ROUTE .STK-MED ONE Lab/Rad Data: Laboratory Result Diagrams 03/15/21 21:40 03/15/21 21:40 Laboratory Results 03/15/21 03/15/21 03/15/21 Range/Units 22:30 22:04 21:41 WBC (4.0-10.5) K/mm3 RBC (4.1-5.4) M/mm3 Hgb (12.0-16.0) gm/dl Hct (35-47) % MCV (78-100) fl MCH (26-32) pg MCHC (32-36) g/dl RDW (11.5-14.0) % Plt Count (150-450) K/mm3 MPV (7.5-11.0) fl Gran % (36.0-66.0) % Eos # (Auto) (0-0.5) Absolute Lymphs (auto) (1.0-4.6) Absolute Monos (auto) (0.0-1.3) Lymphocytes % (24.0-44.0) % Monocytes % (0.0-12.0) % Eosinophils % (0.00-5.0) % Basophils % (0.0-0.4) % Absolute Granulocytes (1.4-6.9) Basophils # (0-0.4) D-Dimer 817 H* (215-500) ng/mL Sodium (137-145) mmol/L Potassium (3.5-5.1) mmol/L Chloride (98-107) mmol/L Carbon Dioxide (22-30) mmol/L Anion Gap (5-15) MEQ/L BUN (7-17) mg/dL Creatinine (0.52-1.04) mg/dL Estimated GFR ML/MIN Glucose (74-106) mg/dL Lactic Acid (0.4-2.0) Calcium (8.4-10.2) mg/dL Total Bilirubin (0.2-1.3) mg/dL AST (14-36) U/L ALT (0-35) U/L Alkaline Phosphatase (38-126) U/L Troponin I (0.000-0.034) ng/mL NT-Pro-B Natriuret Pep (0-450) pg/mL Serum Total Protein (6.3-8.2) g/dL Albumin (3.5-5.0) g/dL Serum , Qual (Negative) Urine Color YELLOW (YELLOW) Urine Appearance SLIGHTLY CLOUDY (CLEAR) Urine pH 6.0 (5-6) Ur Specific [place] 1.021 (1.005-1.025) Urine Protein NEGATIVE (Negative) Urine Ketones NEGATIVE (NEGATIVE) Urine Blood MODERATE (0-5) Norm/ul Urine Nitrite NEGATIVE (NEGATIVE) Urine Bilirubin NEGATIVE (NEGATIVE) Urine Urobilinogen NEGATIVE (0-1) mg/dL Ur Leukocyte Esterase NEGATIVE (NEGATIVE) Urine WBC (Auto) 0-2 (0-5) /HPF Urine RBC (Auto) 3-5 (0-2) /HPF U Epithel Cells (Auto) RARE (FEW) /HPF Urine Bacteria (Auto) NONE SEEN (NEGATIVE) /HPF Urine Mucus (Auto) SLIGHT (NEGATIVE) /HPF Urine Culture Reflexed NO (NO) Urine Glucose NEGATIVE (NEGATIVE) mg/dL Slides for Path Review ABO Group O Rh Factor NEGATIVE Antibody Screen NEGATIVE (NEGATIVE) 03/15/21 03/15/21 03/15/21 Range/Units 21:41 21:40 21:40 WBC (4.0-10.5) K/mm3 RBC (4.1-5.4) M/mm3 Hgb (12.0-16.0) gm/dl Hct (35-47) % MCV (78-100) fl MCH (26-32) pg MCHC (32-36) g/dl RDW (11.5-14.0) % Plt Count (150-450) K/mm3 MPV (7.5-11.0) fl Gran % (36.0-66.0) % Eos # (Auto) (0-0.5) Absolute Lymphs (auto) (1.0-4.6) Absolute Monos (auto) (0.0-1.3) Lymphocytes % (24.0-44.0) % Monocytes % (0.0-12.0) % Eosinophils % (0.00-5.0) % Basophils % (0.0-0.4) % Absolute Granulocytes (1.4-6.9) Basophils # (0-0.4) D-Dimer (215-500) ng/mL Sodium (137-145) mmol/L Potassium (3.5-5.1) mmol/L Chloride (98-107) mmol/L Carbon Dioxide (22-30) mmol/L Anion Gap (5-15) MEQ/L BUN (7-17) mg/dL Creatinine (0.52-1.04) mg/dL Estimated GFR ML/MIN Glucose (74-106) mg/dL Lactic Acid (0.4-2.0) Calcium (8.4-10.2) mg/dL Total Bilirubin (0.2-1.3) mg/dL AST (14-36) U/L ALT (0-35) U/L Alkaline Phosphatase (38-126) U/L Troponin I < 0.012 (0.000-0.034) ng/mL NT-Pro-B Natriuret Pep 31.8 (0-450) pg/mL Serum Total Protein (6.3-8.2) g/dL Albumin (3.5-5.0) g/dL Serum , Qual NEGATIVE (Negative) Urine Color (YELLOW) Urine Appearance (CLEAR) Urine pH (5-6) Ur Specific [place] (1.005-1.025) Urine Protein (Negative) Urine Ketones (NEGATIVE) Urine Blood (0-5) Norm/ul Urine Nitrite (NEGATIVE) Urine Bilirubin (NEGATIVE) Urine Urobilinogen (0-1) mg/dL Ur Leukocyte Esterase (NEGATIVE) Urine WBC (Auto) (0-5) /HPF Urine RBC (Auto) (0-2) /HPF U Epithel Cells (Auto) (FEW) /HPF Urine Bacteria (Auto) (NEGATIVE) /HPF Urine Mucus (Auto) (NEGATIVE) /HPF Urine Culture Reflexed (NO) Urine Glucose (NEGATIVE) mg/dL Slides for Path Review ABO Group Rh Factor Antibody Screen (NEGATIVE) 03/15/21 03/15/21 03/15/21 Range/Units 21:40 21:40 21:24 WBC 10.4 (4.0-10.5) K/mm3 RBC 3.86 L (4.1-5.4) M/mm3 Hgb 8.2 L (12.0-16.0) gm/dl Hct 29.0 L (35-47) % MCV 75.1 L (78-100) fl MCH 21.2 L (26-32) pg MCHC 28.3 L (32-36) g/dl RDW 15.9 H (11.5-14.0) % Plt Count 457 H (150-450) K/mm3 MPV 8.9 (7.5-11.0) fl Gran % 75.9 H (36.0-66.0) % Eos # (Auto) 0.05 (0-0.5) Absolute Lymphs (auto) 1.88 (1.0-4.6) Absolute Monos (auto) 0.55 (0.0-1.3) Lymphocytes % 18.1 L (24.0-44.0) % Monocytes % 5.3 (0.0-12.0) % Eosinophils % 0.5 (0.00-5.0) % Basophils % 0.2 (0.0-0.4) % Absolute Granulocytes 7.90 H (1.4-6.9) Basophils # 0.02 (0-0.4) D-Dimer (215-500) ng/mL Sodium 137 (137-145) mmol/L Potassium 3.6 (3.5-5.1) mmol/L Chloride 104 (98-107) mmol/L Carbon Dioxide 25 (22-30) mmol/L Anion Gap 11.8 (5-15) MEQ/L BUN 11 (7-17) mg/dL Creatinine 0.68 (0.52-1.04) mg/dL Estimated GFR > 60.0 ML/MIN Glucose 122 H (74-106) mg/dL Lactic Acid 1.4 (0.4-2.0) Calcium 9.0 (8.4-10.2) mg/dL Total Bilirubin 0.40 (0.2-1.3) mg/dL AST 22 (14-36) U/L ALT 24 (0-35) U/L Alkaline Phosphatase 98 (38-126) U/L Troponin I (0.000-0.034) ng/mL NT-Pro-B Natriuret Pep (0-450) pg/mL Serum Total Protein 7.8 (6.3-8.2) g/dL Albumin 4.1 (3.5-5.0) g/dL Serum , Qual (Negative) Urine Color (YELLOW) Urine Appearance (CLEAR) Urine pH (5-6) Ur Specific [place] (1.005-1.025) Urine Protein (Negative) Urine Ketones (NEGATIVE) Urine Blood (0-5) Norm/ul Urine Nitrite (NEGATIVE) Urine Bilirubin (NEGATIVE) Urine Urobilinogen (0-1) mg/dL Ur Leukocyte Esterase (NEGATIVE) Urine WBC (Auto) (0-5) /HPF Urine RBC (Auto) (0-2) /HPF U Epithel Cells (Auto) (FEW) /HPF Urine Bacteria (Auto) (NEGATIVE) /HPF Urine Mucus (Auto) (NEGATIVE) /HPF Urine Culture Reflexed (NO) Urine Glucose (NEGATIVE) mg/dL Slides for Path Review YES ABO Group Rh Factor Antibody Screen (NEGATIVE) 03/15/21 Range/Units 00:39 WBC 9.6 (4.0-10.5) K/mm3 RBC 3.65 L (4.1-5.4) M/mm3 Hgb 7.8 L (12.0-16.0) gm/dl Hct 27.6 L (35-47) % MCV 75.6 L (78-100) fl MCH 21.4 L (26-32) pg MCHC 28.3 L (32-36) g/dl RDW 16.1 H (11.5-14.0) % Plt Count 414 (150-450) K/mm3 MPV 8.5 (7.5-11.0) fl Gran % (36.0-66.0) % Eos # (Auto) (0-0.5) Absolute Lymphs (auto) (1.0-4.6) Absolute Monos (auto) (0.0-1.3) Lymphocytes % (24.0-44.0) % Monocytes % (0.0-12.0) % Eosinophils % (0.00-5.0) % Basophils % (0.0-0.4) % Absolute Granulocytes (1.4-6.9) Basophils # (0-0.4) D-Dimer (215-500) ng/mL Sodium (137-145) mmol/L Potassium (3.5-5.1) mmol/L Chloride (98-107) mmol/L Carbon Dioxide (22-30) mmol/L Anion Gap (5-15) MEQ/L BUN (7-17) mg/dL Creatinine (0.52-1.04) mg/dL Estimated GFR ML/MIN Glucose (74-106) mg/dL Lactic Acid (0.4-2.0) Calcium (8.4-10.2) mg/dL Total Bilirubin (0.2-1.3) mg/dL AST (14-36) U/L ALT (0-35) U/L Alkaline Phosphatase (38-126) U/L Troponin I (0.000-0.034) ng/mL NT-Pro-B Natriuret Pep (0-450) pg/mL Serum Total Protein (6.3-8.2) g/dL Albumin (3.5-5.0) g/dL Serum , Qual (Negative) Urine Color (YELLOW) Urine Appearance (CLEAR) Urine pH (5-6) Ur Specific [place] (1.005-1.025) Urine Protein (Negative) Urine Ketones (NEGATIVE) Urine Blood (0-5) Norm/ul Urine Nitrite (NEGATIVE) Urine Bilirubin (NEGATIVE) Urine Urobilinogen (0-1) mg/dL Ur Leukocyte Esterase (NEGATIVE) Urine WBC (Auto) (0-5) /HPF Urine RBC (Auto) (0-2) /HPF U Epithel Cells (Auto) (FEW) /HPF Urine Bacteria (Auto) (NEGATIVE) /HPF Urine Mucus (Auto) (NEGATIVE) /HPF Urine Culture Reflexed (NO) Urine Glucose (NEGATIVE) mg/dL Slides for Path Review ABO Group Rh Factor Antibody Screen (NEGATIVE) - Progress Progress: improved, re-examined Air Movement: good Progress Note: 03/15/21 22:25 elevatede D dimer, discussed risk and benefit and pt wishes to proceed with CT 03/16/21 00:[address] Sauceda and pt and all agree best to come in to recheck hgb and observe stable and monitor for any cardiac complications, and transfusion . 03/16/21 00:53 H/H 7,8 after some hydration , discussed with pt and she agrees to transfusion. 03/16/21 00:55 Blood Culture(s) Obtained: No Antibiotics given: No Discussed with : Mal Will see patient in: hospital (observation) Counseled pt/family regarding: lab results, diagnosis, need for follow-up, rad results - Departure Departure Disposition: Observation Clinical Impression: syncopal episode , Anemia requiring transfusions Condition: Good Critical Care Time: No Referrals: MARIA C DIXON [Primary Care Provider] - Follow up/PCP as directed
[2021-03-15 21:45] LABS: BASOPHIL % 0.2 % (0.0-0.4); Basophil (Absolute #) 0.02 (0-0.4); Eosinophil % 0.5 % (0.00-5.0); Eosinophil (Absolute #) 0.05 (0-0.5); Hemoglobin 8.2 gm/dl (12.0-16.0); Lymphocyte (Absolute #) 1.88 (1.0-4.6); Lymphocytes % 18.1 % (24.0-44.0); Mean Cell Volume 75.1 fl (78-100); Mean Corpuscular Hemoglobin 21.2 pg (26-32); Mean Corpuscular Hgb Concent. 28.3 g/dl (32-36); Mean Platelet Volume 8.9 fl (7.5-11.0); Monocyte (Absolute #) 0.55 (0.0-1.3); Monocytes % 5.3 % (0.0-12.0); Neutrophil % 75.9 % (36.0-66.0); Platelet Count 457 K/mm3 (150-450); Red Blood Count 3.86 M/mm3 (4.1-5.4); Red Cell Distribution Width 15.9 % (11.5-14.0); White Blood Count 10.4 K/mm3 (4.0-10.5)
[2021-03-15 21:57] LABS: ALBUMIN 4.1 g/dL (3.5-5.0); ALKALINE PHOSPHATASE 98 U/L (38-126); ANION GAP 11.8 MEQ/L (5-15); BLOOD UREA NITROGEN 11 mg/dL (7-17); CHLORIDE 104 mmol/L (98-107); Carbon Dioxide 25 mmol/L (22-30); Creatinine 1 0.68 mg/dL (0.52-1.04); EST GLOMERULAR FILTRATION RATE > 60.0 ML/MIN; Glucose 122 mg/dL (74-106); Potassium 3.6 mmol/L (3.5-5.1); SGOT/AST 22 U/L (14-36); SGPT/ALT 24 U/L (0-35); SODIUM 137 mmol/L (137-145); Total Protein 7.8 g/dL (6.3-8.2)
[2021-03-15 22:41] LABS: Appearance SLIGHTLY CLOUDY (CLEAR); Bacteria NONE SEEN /HPF (NEGATIVE); Bilirubin NEGATIVE (NEGATIVE); Blood MODERATE Ery/ul (0-5); Epithelial Cells RARE /HPF (FEW); Glucose NEGATIVE (NEGATIVE); Ketones NEGATIVE (NEGATIVE); Leukocyte Esterase NEGATIVE (NEGATIVE); Mucus SLIGHT /HPF (NEGATIVE); Nitrite NEGATIVE (NEGATIVE); Protein,Urine Dip NEGATIVE (Negative); Specific Gravity 1.021 (1.005-1.025); Urobilinogen NEGATIVE mg/dL (0-1); WBC 0-2 /HPF (0-5)
[2021-03-15 23:16] LABS: ABO TYPING O; Antibody Screen NEGATIVE (NEGATIVE); RH TYPING NEGATIVE
[2021-03-15 23:21] LABS: Slide Review 1 YES
[2021-03-16] MEDS ORDERED: Sodium Chloride 0.9% 1000 ML 1,000 ML ONE (00:05)
[2021-03-16 00:43] LABS: Hematocrit 27.6 % (35-47); Hemoglobin 7.8 gm/dl (12.0-16.0); Mean Cell Volume 75.6 fl (78-100); Mean Corpuscular Hemoglobin 21.4 pg (26-32); Mean Corpuscular Hgb Concent. 28.3 g/dl (32-36); Mean Platelet Volume 8.5 fl (7.5-11.0); Platelet Count 414 K/mm3 (150-450); Red Blood Count 3.65 M/mm3 (4.1-5.4); Red Cell Distribution Width 16.1 % (11.5-14.0); White Blood Count 9.6 K/mm3 (4.0-10.5)
[2021-03-16 01:24] LABS: INFLUENZA A NEGATIVE (NEGATIVE); INFLUENZA B NEGATIVE (NEGATIVE); RESPIRATORY SYNCTIAL VIRUS NEGATIVE (Negative); SARS-CoV-2 Xpert Express NEGATIVE (NEGATIVE)
[2021-03-16] MEDS ORDERED: Senokot-S Tablet PO PRN (02:32)
[2021-03-16] MEDS ORDERED: TYLENOL 325 MG PO PRN ×2 (02:32)
[2021-03-16] MEDS ORDERED: Zofran 4 MG/2 ML VIAL IV PRN ×2 (02:32)
[2021-03-16] MEDS ORDERED: MILK OF MAGNESIA 30 ML PO PRN (02:32)
[2021-03-16] MEDS ORDERED: MORPHINE SULFATE 4 MG INJ IV PRN (02:32)
[2021-03-16] MEDS ORDERED: HUMULIN R SQ PRN (02:32)
[2021-03-16] MEDS ORDERED: MAALOX ES 30 ML UNIT DOSE PO PRN (02:32)
[2021-03-16] MEDS ORDERED: Sodium Chloride 0.9% 1000 ML 1,000 ML IV SCH (02:32)
[2021-03-16 04:11] LABS: CROSS MATCH (PRBC) COMPATIBLE (COMPATIBLE)
--- NOTE | 2021-03-16 07:27 | XRAY ---
Indication: Chest pain. Syncope. Elevated d-dimer. Multiple contiguous axial images obtained through the chest using 100 cc Isovue-370 contrast and PE protocol. Comparison: May 16, 2020 There is again suboptimal opacification of the pulmonary arteries limiting evaluation for pulmonary embolus. Also mild diffuse respiration artifact. No obvious central pulmonary embolus. Heart is borderline enlarged. Aorta normal in course and caliber. Stable tiny left hilar calcified nodes. No pathologic mediastinal/hilar lymphadenopathy. Lungs again demonstrates minimal left base fibrosis/scarring. No suspicious pulmonary mass, infiltrate, or effusion. Bony thorax intact again with minimal degenerative changes throughout the spine. Limited upper abdomen again demonstrates fatty liver and 15.6 cm splenomegaly. Impression: 1. Pulmonary embolus evaluation limited due to suboptimal opacification and respiration artifact. Again no obvious central pulmonary embolus. 2. No new or acute cardiopulmonary abnormalities. 3. Again incidental fatty liver, splenomegaly, and old granulomatous disease Comment: Preliminary interpretation made by [facility]. No critical discrepancy.
--- NOTE | 2021-03-16 07:29 | XRAY ---
Indication: Chest pain. Syncope. Comparison: May 16, 2020. Portable chest remains clear. Heart now borderline enlarged. Bony thorax intact. No new/acute findings.
[2021-03-16 08:23] VITALS: O2SAT 94
[2021-03-16] MEDS ORDERED: Pepcid 20 MG VIAL IV SCH (10:00)
[2021-03-16] MEDS ORDERED: Ecotrin 325 MG PO SCH (10:00)
[2021-03-16 12:22] VITALS: BP 130/77; PULSE 92
[2021-03-16 12:28] LABS: Absolute Neutrophil Ct (ANC) 4.89 (1.4-6.9); BASOPHIL % 0.6 % (0.0-0.4); Basophil (Absolute #) 0.04 (0-0.4); Eosinophil % 0.9 % (0.00-5.0); Eosinophil (Absolute #) 0.06 (0-0.5); Hematocrit 33.6 % (35-47); Hemoglobin 9.8 gm/dl (12.0-16.0); Lymphocyte (Absolute #) 1.41 (1.0-4.6); Lymphocytes % 20.3 % (24.0-44.0); Mean Cell Volume 77.1 fl (78-100); Mean Corpuscular Hemoglobin 22.5 pg (26-32); Mean Corpuscular Hgb Concent. 29.2 g/dl (32-36); Monocyte (Absolute #) 0.55 (0.0-1.3); Monocytes % 7.9 % (0.0-12.0); Neutrophil % 70.3 % (36.0-66.0); Platelet Count 441 K/mm3 (150-450); Red Blood Count 4.36 M/mm3 (4.1-5.4); Red Cell Distribution Width 16.4 % (11.5-14.0)
[2021-03-16 12:57] LABS: ALBUMIN 3.8 g/dL (3.5-5.0); ALKALINE PHOSPHATASE 88 U/L (38-126); ANION GAP 12.7 MEQ/L (5-15); BLOOD UREA NITROGEN 7 mg/dL (7-17); CHLORIDE 108 mmol/L (98-107); Calcium 8.8 mg/dL (8.4-10.2); Carbon Dioxide 24 mmol/L (22-30); Cholesterol 160 mg/dL (50-200); Creatinine 1 0.62 mg/dL (0.52-1.04); EST GLOMERULAR FILTRATION RATE > 60.0 ML/MIN; Glucose 88 mg/dL (74-106); HDL CHOLESTEROL 33 mg/dL (40-60); LDL, DIRECT 94 mg/dL (30-100); Potassium 4.3 mmol/L (3.5-5.1); Risk Ratio 4.8; SGOT/AST 21 U/L (14-36); SGPT/ALT 21 U/L (0-35); SODIUM 140 mmol/L (137-145); TRIGLYCERIDE 141 mg/dL (30-150); Total Protein 7.2 g/dL (6.3-8.2)
--- NOTE | 2021-03-16 14:02 | PCM.SSS ---
History of Present Illness - Chief Complaint Chief Complaint: Anemia requiring transfusion; syncopal episode, tachycardia /chest pain History of Present Illness: is a 26 year old female patient of Dr Dixon who presented to ER with Chest pain and syncopal episode. Patient has had extremely heavy periods stating she may bleed for 3 weeks at a time. ,not currently on menses and has had a tubal ligation. Consult about [address] Sotelo ,[employer] but patient choose not to get Mirena or start BCP due to obesity and severe cramping with menses. Hgb in ER was 7.8 and patient was admitted for OBS . - Review of Systems Constitutional: Fatigue, Weakness Eyes: No Symptoms Ears, Nose, & Throat: No Symptoms Respiratory: Short Of Breath Cardiac: Chest Pain (resolved) Abdominal/Gastrointestinal: No Symptoms Genitourinary Symptoms: No Symptoms Musculoskeletal: No Symptoms Skin: No Symptoms Neurological: Other (syncope 1 episode day of admission) Psychological: Depression (mood is stable) Endocrine: Other (obesity difficulty loosing weight) Medications & Allergies Home Medications: Home Medication List No Reportable Medications [No Reported Medications] 03/15/21 [History Confirmed 03/16/21] Allergies/Adverse Reactions: Allergies Allergy/AdvReac Type Severity Reaction Status Date / Time jalapenos Allergy Mild Uncoded 03/16/21 02:35 - Past Medical History Past Medical History: Yes Neurological History: Migraines ENT History: No Pertinent History Cardiac History: Hypertension Respiratory History: No Pertinent History Endocrine Medical History: Other Musculoskelatal History: No Pertinent History GI Medical History: GERD History: No Pertinent History Pyscho-Social History: Depression Reproductive Disorders: Menstrual Problems Comment: "elevated thyroid levels," heavy periods - Female History Hx Last Menstrual Period: 02/23/21 Are you now?: No (HCG pending) - Past Surgical History Past Surgical History: Yes Neuro Surgical History: No Pertinent History Cardiac History: No Pertinent History Respiratory Surgery: No Pertinent History GI Surgical History: No Pertinent History Genitourinary Surgical Hx: No Pertinent History Musculskeletal Surgical Hx: No Pertinent History Female Surgical History: Section Other Surgical History: c sections x2 - Social History Smoking Status: Never smoker Exposure to second hand smoke: No Alcohol: None Drug Use: none - Physical Exam Vital Signs: Vital Signs - 24 hr Temp Pulse Pulse Resp BP Pulse Ox 03/16/21 12:00 97.7 F 92 H 16 130/77 94 L 03/16/21 08:00 97.7 F 102 H 18 107/54 94 L 03/16/21 04:00 96 03/16/21 02:44 97.5 F 104 H 22 134/63 96 03/16/21 01:00 104 H 14 114/61 98 03/16/21 00:55 97 03/16/21 00:00 121 H 18 121/69 95 03/15/21 23:00 120 H 20 111/73 97 03/15/21 22:10 124 H 18 158/87 97 03/15/21 21:35 98 03/15/21 21:15 130 H 16 General Appearance: no apparent distress (is sitting in bedside chair. Has received 2 units of PRBC overnight) Neurologic Exam: alert, oriented x 3, cooperative, normal mood/affect Eye Exam: eyes nml inspection Ears, Nose, Throat Exam: normal ENT inspection Neck Exam: normal inspection Respiratory Exam: normal breath sounds Cardiovascular Exam: tachycardia Gastrointestinal/Abdomen Exam: soft (nontender) Pelvic Exam: not done Rectal Exam: not done Back Exam: normal inspection Extremity Exam: other (trace ankle edema) Skin Exam: normal color, warm, dry Results - Labs Lab/Micro Results: Lab Results-Last 24 Hours 03/15/21 03/15/21 03/15/21 Range/Units 00:39 21:24 21:40 WBC 9.6 10.4 (4.0-10.5) K/mm3 RBC 3.65 L 3.86 L (4.1-5.4) M/mm3 Hgb 7.8 L 8.2 L (12.0-16.0) gm/dl Hct 27.6 L 29.0 L (35-47) % MCV 75.6 L 75.1 L (78-100) fl MCH 21.4 L 21.2 L (26-32) pg MCHC 28.3 L 28.3 L (32-36) g/dl RDW 16.1 H 15.9 H (11.5-14.0) % Plt Count 414 457 H (150-450) K/mm3 MPV 8.5 8.9 (7.5-11.0) fl Gran % 75.9 H (36.0-66.0) % Eos # (Auto) 0.05 (0-0.5) Absolute Lymphs (auto) 1.88 (1.0-4.6) Absolute Monos (auto) 0.55 (0.0-1.3) Lymphocytes % 18.1 L (24.0-44.0) % Monocytes % 5.3 (0.0-12.0) % Eosinophils % 0.5 (0.00-5.0) % Basophils % 0.2 (0.0-0.4) % Absolute Granulocytes 7.90 H (1.4-6.9) Basophils # 0.02 (0-0.4) D-Dimer (215-500) ng/mL Sodium (137-145) mmol/L Potassium (3.5-5.1) mmol/L Chloride (98-107) mmol/L Carbon Dioxide (22-30) mmol/L Anion Gap (5-15) MEQ/L BUN (7-17) mg/dL Creatinine (0.52-1.04) mg/dL Estimated GFR ML/MIN Glucose (74-106) mg/dL Lactic Acid 1.4 (0.4-2.0) Calcium (8.4-10.2) mg/dL Total Bilirubin (0.2-1.3) mg/dL AST (14-36) U/L ALT (0-35) U/L Alkaline Phosphatase (38-126) U/L Troponin I (0.000-0.034) ng/mL NT-Pro-B Natriuret Pep (0-450) pg/mL Serum Total Protein (6.3-8.2) g/dL Albumin (3.5-5.0) g/dL Triglycerides (30-150) mg/dL Cholesterol (50-200) mg/dL LDL Cholesterol (30-100) mg/dL HDL Cholesterol (40-60) mg/dL Heart Disease Risk Ratio Serum , Qual (Negative) Urine Color (YELLOW) Urine Appearance (CLEAR) Urine pH (5-6) Ur Specific Alba (1.005-1.025) Urine Protein (Negative) Urine Ketones (NEGATIVE) Urine Blood (0-5) Norm/ul Urine Nitrite (NEGATIVE) Urine Bilirubin (NEGATIVE) Urine Urobilinogen (0-1) mg/dL Ur Leukocyte Esterase (NEGATIVE) Urine WBC (Auto) (0-5) /HPF Urine RBC (Auto) (0-2) /HPF U Epithel Cells (Auto) (FEW) /HPF Urine Bacteria (Auto) (NEGATIVE) /HPF Urine Mucus (Auto) (NEGATIVE) /HPF Urine Culture Reflexed (NO) Urine Glucose (NEGATIVE) mg/dL Influenza Type A Ag (NEGATIVE) Influenza Type B Ag (NEGATIVE) RSV (PCR) (Negative) SARS-CoV-2 (PCR) (NEGATIVE) Slides for Path Review YES ABO Group Rh Factor Antibody Screen (NEGATIVE) Crossmatch (COMPATIBLE) 03/15/21 03/15/21 03/15/21 Range/Units 21:40 21:40 21:40 WBC (4.0-10.5) K/mm3 RBC (4.1-5.4) M/mm3 Hgb (12.0-16.0) gm/dl Hct (35-47) % MCV (78-100) fl MCH (26-32) pg MCHC (32-36) g/dl RDW (11.5-14.0) % Plt Count (150-450) K/mm3 MPV (7.5-11.0) fl Gran % (36.0-66.0) % Eos # (Auto) (0-0.5) Absolute Lymphs (auto) (1.0-4.6) Absolute Monos (auto) (0.0-1.3) Lymphocytes % (24.0-44.0) % Monocytes % (0.0-12.0) % Eosinophils % (0.00-5.0) % Basophils % (0.0-0.4) % Absolute Granulocytes (1.4-6.9) Basophils # (0-0.4) D-Dimer (215-500) ng/mL Sodium 137 (137-145) mmol/L Potassium 3.6 (3.5-5.1) mmol/L Chloride 104 (98-107) mmol/L Carbon Dioxide 25 (22-30) mmol/L Anion Gap 11.8 (5-15) MEQ/L BUN 11 (7-17) mg/dL Creatinine 0.68 (0.52-1.04) mg/dL Estimated GFR > 60.0 ML/MIN Glucose 122 H (74-106) mg/dL Lactic Acid (0.4-2.0) Calcium 9.0 (8.4-10.2) mg/dL Total Bilirubin 0.40 (0.2-1.3) mg/dL AST 22 (14-36) U/L ALT 24 (0-35) U/L Alkaline Phosphatase 98 (38-126) U/L Troponin I < 0.012 (0.000-0.034) ng/mL NT-Pro-B Natriuret Pep (0-450) pg/mL Serum Total Protein 7.8 (6.3-8.2) g/dL Albumin 4.1 (3.5-5.0) g/dL Triglycerides (30-150) mg/dL Cholesterol (50-200) mg/dL LDL Cholesterol (30-100) mg/dL HDL Cholesterol (40-60) mg/dL Heart Disease Risk Ratio Serum , Qual NEGATIVE (Negative) Urine Color (YELLOW) Urine Appearance (CLEAR) Urine pH (5-6) Ur Specific Alba (1.005-1.025) Urine Protein (Negative) Urine Ketones (NEGATIVE) Urine Blood (0-5) Norm/ul Urine Nitrite (NEGATIVE) Urine Bilirubin (NEGATIVE) Urine Urobilinogen (0-1) mg/dL Ur Leukocyte Esterase (NEGATIVE) Urine WBC (Auto) (0-5) /HPF Urine RBC (Auto) (0-2) /HPF U Epithel Cells (Auto) (FEW) /HPF Urine Bacteria (Auto) (NEGATIVE) /HPF Urine Mucus (Auto) (NEGATIVE) /HPF Urine Culture Reflexed (NO) Urine Glucose (NEGATIVE) mg/dL Influenza Type A Ag (NEGATIVE) Influenza Type B Ag (NEGATIVE) RSV (PCR) (Negative) SARS-CoV-2 (PCR) (NEGATIVE) Slides for Path Review ABO Group Rh Factor Antibody Screen (NEGATIVE) Crossmatch (COMPATIBLE) 03/15/21 03/15/21 03/15/21 Range/Units 21:41 21:41 22:04 WBC (4.0-10.5) K/mm3 RBC (4.1-5.4) M/mm3 Hgb (12.0-16.0) gm/dl Hct (35-47) % MCV (78-100) fl MCH (26-32) pg MCHC (32-36) g/dl RDW (11.5-14.0) % Plt Count (150-450) K/mm3 MPV (7.5-11.0) fl Gran % (36.0-66.0) % Eos # (Auto) (0-0.5) Absolute Lymphs (auto) (1.0-4.6) Absolute Monos (auto) (0.0-1.3) Lymphocytes % (24.0-44.0) % Monocytes % (0.0-12.0) % Eosinophils % (0.00-5.0) % Basophils % (0.0-0.4) % Absolute Granulocytes (1.4-6.9) Basophils # (0-0.4) D-Dimer 817 H* (215-500) ng/mL Sodium (137-145) mmol/L Potassium (3.5-5.1) mmol/L Chloride (98-107) mmol/L Carbon Dioxide (22-30) mmol/L Anion Gap (5-15) MEQ/L BUN (7-17) mg/dL Creatinine (0.52-1.04) mg/dL Estimated GFR ML/MIN Glucose (74-106) mg/dL Lactic Acid (0.4-2.0) Calcium (8.4-10.2) mg/dL Total Bilirubin (0.2-1.3) mg/dL AST (14-36) U/L ALT (0-35) U/L Alkaline Phosphatase (38-126) U/L Troponin I (0.000-0.034) ng/mL NT-Pro-B Natriuret Pep 31.8 (0-450) pg/mL Serum Total Protein (6.3-8.2) g/dL Albumin (3.5-5.0) g/dL Triglycerides (30-150) mg/dL Cholesterol (50-200) mg/dL LDL Cholesterol (30-100) mg/dL HDL Cholesterol (40-60) mg/dL Heart Disease Risk Ratio Serum , Qual (Negative) Urine Color (YELLOW) Urine Appearance (CLEAR) Urine pH (5-6) Ur Specific Alba (1.005-1.025) Urine Protein (Negative) Urine Ketones (NEGATIVE) Urine Blood (0-5) Norm/ul Urine Nitrite (NEGATIVE) Urine Bilirubin (NEGATIVE) Urine Urobilinogen (0-1) mg/dL Ur Leukocyte Esterase (NEGATIVE) Urine WBC (Auto) (0-5) /HPF Urine RBC (Auto) (0-2) /HPF U Epithel Cells (Auto) (FEW) /HPF Urine Bacteria (Auto) (NEGATIVE) /HPF Urine Mucus (Auto) (NEGATIVE) /HPF Urine Culture Reflexed (NO) Urine Glucose (NEGATIVE) mg/dL Influenza Type A Ag (NEGATIVE) Influenza Type B Ag (NEGATIVE) RSV (PCR) (Negative) SARS-CoV-2 (PCR) (NEGATIVE) Slides for Path Review ABO Group O Rh Factor NEGATIVE Antibody Screen NEGATIVE (NEGATIVE) Crossmatch COMPATIBLE (COMPATIBLE) 03/15/21 03/16/21 03/16/21 Range/Units 22:30 00:39 00:43 WBC (4.0-10.5) K/mm3 RBC (4.1-5.4) M/mm3 Hgb (12.0-16.0) gm/dl Hct (35-47) % MCV (78-100) fl MCH (26-32) pg MCHC (32-36) g/dl RDW (11.5-14.0) % Plt Count (150-450) K/mm3 MPV (7.5-11.0) fl Gran % (36.0-66.0) % Eos # (Auto) (0-0.5) Absolute Lymphs (auto) (1.0-4.6) Absolute Monos (auto) (0.0-1.3) Lymphocytes % (24.0-44.0) % Monocytes % (0.0-12.0) % Eosinophils % (0.00-5.0) % Basophils % (0.0-0.4) % Absolute Granulocytes (1.4-6.9) Basophils # (0-0.4) D-Dimer (215-500) ng/mL Sodium (137-145) mmol/L Potassium (3.5-5.1) mmol/L Chloride (98-107) mmol/L Carbon Dioxide (22-30) mmol/L Anion Gap (5-15) MEQ/L BUN (7-17) mg/dL Creatinine (0.52-1.04) mg/dL Estimated GFR ML/MIN Glucose (74-106) mg/dL Lactic Acid (0.4-2.0) Calcium (8.4-10.2) mg/dL Total Bilirubin (0.2-1.3) mg/dL AST (14-36) U/L ALT (0-35) U/L Alkaline Phosphatase (38-126) U/L Troponin I < 0.012 (0.000-0.034) ng/mL NT-Pro-B Natriuret Pep (0-450) pg/mL Serum Total Protein (6.3-8.2) g/dL Albumin (3.5-5.0) g/dL Triglycerides (30-150) mg/dL Cholesterol (50-200) mg/dL LDL Cholesterol (30-100) mg/dL HDL Cholesterol (40-60) mg/dL Heart Disease Risk Ratio Serum , Qual (Negative) Urine Color YELLOW (YELLOW) Urine Appearance SLIGHTLY CLOUDY (CLEAR) Urine pH 6.0 (5-6) Ur Specific Alba 1.021 (1.005-1.025) Urine Protein NEGATIVE (Negative) Urine Ketones NEGATIVE (NEGATIVE) Urine Blood MODERATE (0-5) Norm/ul Urine Nitrite NEGATIVE (NEGATIVE) Urine Bilirubin NEGATIVE (NEGATIVE) Urine Urobilinogen NEGATIVE (0-1) mg/dL Ur Leukocyte Esterase NEGATIVE (NEGATIVE) Urine WBC (Auto) 0-2 (0-5) /HPF Urine RBC (Auto) 3-5 (0-2) /HPF U Epithel Cells (Auto) RARE (FEW) /HPF Urine Bacteria (Auto) NONE SEEN (NEGATIVE) /HPF Urine Mucus (Auto) SLIGHT (NEGATIVE) /HPF Urine Culture Reflexed NO (NO) Urine Glucose NEGATIVE (NEGATIVE) mg/dL Influenza Type A Ag NEGATIVE (NEGATIVE) Influenza Type B Ag NEGATIVE (NEGATIVE) RSV (PCR) NEGATIVE (Negative) SARS-CoV-2 (PCR) NEGATIVE (NEGATIVE) Slides for Path Review ABO Group Rh Factor Antibody Screen (NEGATIVE) Crossmatch (COMPATIBLE) 03/16/21 03/16/21 03/16/21 Range/Units 02:47 03:37 06:40 WBC (4.0-10.5) K/mm3 RBC (4.1-5.4) M/mm3 Hgb (12.0-16.0) gm/dl Hct (35-47) % MCV (78-100) fl MCH (26-32) pg MCHC (32-36) g/dl RDW (11.5-14.0) % Plt Count (150-450) K/mm3 MPV (7.5-11.0) fl Gran % (36.0-66.0) % Eos # (Auto) (0-0.5) Absolute Lymphs (auto) (1.0-4.6) Absolute Monos (auto) (0.0-1.3) Lymphocytes % (24.0-44.0) % Monocytes % (0.0-12.0) % Eosinophils % (0.00-5.0) % Basophils % (0.0-0.4) % Absolute Granulocytes (1.4-6.9) Basophils # (0-0.4) D-Dimer (215-500) ng/mL Sodium (137-145) mmol/L Potassium (3.5-5.1) mmol/L Chloride (98-107) mmol/L Carbon Dioxide (22-30) mmol/L Anion Gap (5-15) MEQ/L BUN (7-17) mg/dL Creatinine (0.52-1.04) mg/dL Estimated GFR ML/MIN Glucose (74-106) mg/dL Lactic Acid (0.4-2.0) Calcium (8.4-10.2) mg/dL Total Bilirubin (0.2-1.3) mg/dL AST (14-36) U/L ALT (0-35) U/L Alkaline Phosphatase (38-126) U/L Troponin I < 0.012 < 0.012 (0.000-0.034) ng/mL NT-Pro-B Natriuret Pep (0-450) pg/mL Serum Total Protein (6.3-8.2) g/dL Albumin (3.5-5.0) g/dL Triglycerides (30-150) mg/dL Cholesterol (50-200) mg/dL LDL Cholesterol (30-100) mg/dL HDL Cholesterol (40-60) mg/dL Heart Disease Risk Ratio Serum , Qual (Negative) Urine Color (YELLOW) Urine Appearance (CLEAR) Urine pH (5-6) Ur Specific Alba (1.005-1.025) Urine Protein (Negative) Urine Ketones (NEGATIVE) Urine Blood (0-5) Norm/ul Urine Nitrite (NEGATIVE) Urine Bilirubin (NEGATIVE) Urine Urobilinogen (0-1) mg/dL Ur Leukocyte Esterase (NEGATIVE) Urine WBC (Auto) (0-5) /HPF Urine RBC (Auto) (0-2) /HPF U Epithel Cells (Auto) (FEW) /HPF Urine Bacteria (Auto) (NEGATIVE) /HPF Urine Mucus (Auto) (NEGATIVE) /HPF Urine Culture Reflexed (NO) Urine Glucose (NEGATIVE) mg/dL Influenza Type A Ag (NEGATIVE) Influenza Type B Ag (NEGATIVE) RSV (PCR) (Negative) SARS-CoV-2 (PCR) (NEGATIVE) Slides for Path Review ABO Group Rh Factor Antibody Screen (NEGATIVE) Crossmatch COMPATIBLE (COMPATIBLE) 03/16/21 03/16/21 03/16/21 Range/Units 11:55 11:55 11:55 WBC 7.0 (4.0-10.5) K/mm3 RBC 4.36 (4.1-5.4) M/mm3 Hgb 9.8 L (12.0-16.0) gm/dl Hct 33.6 L (35-47) % MCV 77.1 L (78-100) fl MCH 22.5 L (26-32) pg MCHC 29.2 L (32-36) g/dl RDW 16.4 H (11.5-14.0) % Plt Count 441 (150-450) K/mm3 MPV 9.0 (7.5-11.0) fl Gran % 70.3 H (36.0-66.0) % Eos # (Auto) 0.06 (0-0.5) Absolute Lymphs (auto) 1.41 (1.0-4.6) Absolute Monos (auto) 0.55 (0.0-1.3) Lymphocytes % 20.3 L (24.0-44.0) % Monocytes % 7.9 (0.0-12.0) % Eosinophils % 0.9 (0.00-5.0) % Basophils % 0.6 (0.0-0.4) % Absolute Granulocytes 4.89 (1.4-6.9) Basophils # 0.04 (0-0.4) D-Dimer (215-500) ng/mL Sodium 140 (137-145) mmol/L Potassium 4.3 (3.5-5.1) mmol/L Chloride 108 H (98-107) mmol/L Carbon Dioxide 24 (22-30) mmol/L Anion Gap 12.7 (5-15) MEQ/L BUN 7 (7-17) mg/dL Creatinine 0.62 (0.52-1.04) mg/dL Estimated GFR > 60.0 ML/MIN Glucose 88 (74-106) mg/dL Lactic Acid (0.4-2.0) Calcium 8.8 (8.4-10.2) mg/dL Total Bilirubin 0.60 (0.2-1.3) mg/dL AST 21 (14-36) U/L ALT 21 (0-35) U/L Alkaline Phosphatase 88 (38-126) U/L Troponin I < 0.012 (0.000-0.034) ng/mL NT-Pro-B Natriuret Pep (0-450) pg/mL Serum Total Protein 7.2 (6.3-8.2) g/dL Albumin 3.8 (3.5-5.0) g/dL Triglycerides 141 (30-150) mg/dL Cholesterol 160 (50-200) mg/dL LDL Cholesterol 94 (30-100) mg/dL HDL Cholesterol 33 L (40-60) mg/dL Heart Disease Risk Ratio 4.8 Serum , Qual (Negative) Urine Color (YELLOW) Urine Appearance (CLEAR) Urine pH (5-6) Ur Specific Alba (1.005-1.025) Urine Protein (Negative) Urine Ketones (NEGATIVE) Urine Blood (0-5) Norm/ul Urine Nitrite (NEGATIVE) Urine Bilirubin (NEGATIVE) Urine Urobilinogen (0-1) mg/dL Ur Leukocyte Esterase (NEGATIVE) Urine WBC (Auto) (0-5) /HPF Urine RBC (Auto) (0-2) /HPF U Epithel Cells (Auto) (FEW) /HPF Urine Bacteria (Auto) (NEGATIVE) /HPF Urine Mucus (Auto) (NEGATIVE) /HPF Urine Culture Reflexed (NO) Urine Glucose (NEGATIVE) mg/dL Influenza Type A Ag (NEGATIVE) Influenza Type B Ag (NEGATIVE) RSV (PCR) (Negative) SARS-CoV-2 (PCR) (NEGATIVE) Slides for Path Review ABO Group Rh Factor Antibody Screen (NEGATIVE) Crossmatch (COMPATIBLE) - Radiology Impressions Radiology Exams & Impressions: Radiology Procedures Category Date Time Status CHEST 1 VIEW (PORTABLE) Stat Exams 03/15/21 21:25 Completed CHEST WITH CONTRAST [CT] Stat Exams 03/15/21 22:24 Completed - Other Procedures and Tests Respiratory Therapy 03/17/21 05:00 EKG ONCE 03/18/21 05:00 EKG ONCE 03/19/21 05:00 EKG ONCE Assessment/Plan (1) Anemia requiring transfusions Current Visit: Yes Status: Acute Assessment & Plan: tolerated 2 units PRBC Code(s): D64.9 - ANEMIA, UNSPECIFIED (2) Hypermenorrhea Current Visit: Yes Status: Chronic Assessment & Plan: consider ablation-appt with [employer] outpatient Code(s): N92.0 - EXCESSIVE AND FREQUENT MENSTRUATION WITH REGULAR CYCLE (3) Chest pain Current Visit: No Status: Resolved Assessment & Plan: will follow as outpatient Dr Alexis Code(s): R07.9 - CHEST PAIN, UNSPECIFIED (4) Tachycardia Current Visit: Yes Status: Acute Assessment & Plan: persists up to 105 at rest - Holter monitor 49hr on discharge. Patient will be off work until released by PCP,Dr Dixon. Code(s): R00.0 - TACHYCARDIA, UNSPECIFIED (5) Family history of premature CAD Current Visit: Yes Status: Chronic Assessment & Plan: Mother has CAD 1st of 5 MIs at age 37 years . Patient will see Systems Requirements Planner Dr Alexis. Code(s): Z82.49 - FAMILY HX OF ISCHEM HEART DIS AND OTH DIS OF THE [facility] Summary - Hospital Course Hospital Course: Patient received 2 units of PRBC overnight and state "I feel more like myself". No further chest pain or lightheadedness. Patient will not RTW until seen by PCP,Dr Dixon. She will also see [facility] [employer] for tx hypermenorrhea and Dr Alexis for Cardiac workuo -tachycardia and mother with premature CAD.See HPI. - Vitals & Intake/Output Vital Signs: Vital Signs Temperature 97.7 F 03/16/21 12:00 Pulse Rate 92 H 03/16/21 12:00 Respiratory Rate 16 03/16/21 12:00 Blood Pressure 130/77 03/16/21 12:00 O2 Sat by Pulse Oximetry 94 L 03/16/21 12:00 Intake & Output: Intake & Output 03/14/21 03/15/21 03/16/21 03/17/21 11:59 11:59 11:59 11:59 Output Total 500 Balance -500 Weight 172.6 kg - Lab Result Diagrams: 03/16/21 11:55 03/16/21 11:55 Lab Results-Last 24 Hrs: Lab Results-Last 24 Hours 03/15/21 03/15/21 03/15/21 Range/Units 00:39 21:24 21:40 WBC 9.6 10.4 (4.0-10.5) K/mm3 RBC 3.65 L 3.86 L (4.1-5.4) M/mm3 Hgb 7.8 L 8.2 L (12.0-16.0) gm/dl Hct 27.6 L 29.0 L (35-47) % MCV 75.6 L 75.1 L (78-100) fl MCH 21.4 L 21.2 L (26-32) pg MCHC 28.3 L 28.3 L (32-36) g/dl RDW 16.1 H 15.9 H (11.5-14.0) % Plt Count 414 457 H (150-450) K/mm3 MPV 8.5 8.9 (7.5-11.0) fl Gran % 75.9 H (36.0-66.0) % Eos # (Auto) 0.05 (0-0.5) Absolute Lymphs (auto) 1.88 (1.0-4.6) Absolute Monos (auto) 0.55 (0.0-1.3) Lymphocytes % 18.1 L (24.0-44.0) % Monocytes % 5.3 (0.0-12.0) % Eosinophils % 0.5 (0.00-5.0) % Basophils % 0.2 (0.0-0.4) % Absolute Granulocytes 7.90 H (1.4-6.9) Basophils # 0.02 (0-0.4) D-Dimer (215-500) ng/mL Sodium (137-145) mmol/L Potassium (3.5-5.1) mmol/L Chloride (98-107) mmol/L Carbon Dioxide (22-30) mmol/L Anion Gap (5-15) MEQ/L BUN (7-17) mg/dL Creatinine (0.52-1.04) mg/dL Estimated GFR ML/MIN Glucose (74-106) mg/dL Lactic Acid 1.4 (0.4-2.0) Calcium (8.4-10.2) mg/dL Total Bilirubin (0.2-1.3) mg/dL AST (14-36) U/L ALT (0-35) U/L Alkaline Phosphatase (38-126) U/L Troponin I (0.000-0.034) ng/mL NT-Pro-B Natriuret Pep (0-450) pg/mL Serum Total Protein (6.3-8.2) g/dL Albumin (3.5-5.0) g/dL Triglycerides (30-150) mg/dL Cholesterol (50-200) mg/dL LDL Cholesterol (30-100) mg/dL HDL Cholesterol (40-60) mg/dL Heart Disease Risk Ratio Serum , Qual (Negative) Urine Color (YELLOW) Urine Appearance (CLEAR) Urine pH (5-6) Ur Specific Alba (1.005-1.025) Urine Protein (Negative) Urine Ketones (NEGATIVE) Urine Blood (0-5) Norm/ul Urine Nitrite (NEGATIVE) Urine Bilirubin (NEGATIVE) Urine Urobilinogen (0-1) mg/dL Ur Leukocyte Esterase (NEGATIVE) Urine WBC (Auto) (0-5) /HPF Urine RBC (Auto) (0-2) /HPF U Epithel Cells (Auto) (FEW) /HPF Urine Bacteria (Auto) (NEGATIVE) /HPF Urine Mucus (Auto) (NEGATIVE) /HPF Urine Culture Reflexed (NO) Urine Glucose (NEGATIVE) mg/dL Influenza Type A Ag (NEGATIVE) Influenza Type B Ag (NEGATIVE) RSV (PCR) (Negative) SARS-CoV-2 (PCR) (NEGATIVE) Slides for Path Review YES ABO Group Rh Factor Antibody Screen (NEGATIVE) Crossmatch (COMPATIBLE) 03/15/21 03/15/21 03/15/21 Range/Units 21:40 21:40 21:40 WBC (4.0-10.5) K/mm3 RBC (4.1-5.4) M/mm3 Hgb (12.0-16.0) gm/dl Hct (35-47) % MCV (78-100) fl MCH (26-32) pg MCHC (32-36) g/dl RDW (11.5-14.0) % Plt Count (150-450) K/mm3 MPV (7.5-11.0) fl Gran % (36.0-66.0) % Eos # (Auto) (0-0.5) Absolute Lymphs (auto) (1.0-4.6) Absolute Monos (auto) (0.0-1.3) Lymphocytes % (24.0-44.0) % Monocytes % (0.0-12.0) % Eosinophils % (0.00-5.0) % Basophils % (0.0-0.4) % Absolute Granulocytes (1.4-6.9) Basophils # (0-0.4) D-Dimer (215-500) ng/mL Sodium 137 (137-145) mmol/L Potassium 3.6 (3.5-5.1) mmol/L Chloride 104 (98-107) mmol/L Carbon Dioxide 25 (22-30) mmol/L Anion Gap 11.8 (5-15) MEQ/L BUN 11 (7-17) mg/dL Creatinine 0.68 (0.52-1.04) mg/dL Estimated GFR > 60.0 ML/MIN Glucose 122 H (74-106) mg/dL Lactic Acid (0.4-2.0) Calcium 9.0 (8.4-10.2) mg/dL Total Bilirubin 0.40 (0.2-1.3) mg/dL AST 22 (14-36) U/L ALT 24 (0-35) U/L Alkaline Phosphatase 98 (38-126) U/L Troponin I < 0.012 (0.000-0.034) ng/mL NT-Pro-B Natriuret Pep (0-450) pg/mL Serum Total Protein 7.8 (6.3-8.2) g/dL Albumin 4.1 (3.5-5.0) g/dL Triglycerides (30-150) mg/dL Cholesterol (50-200) mg/dL LDL Cholesterol (30-100) mg/dL HDL Cholesterol (40-60) mg/dL Heart Disease Risk Ratio Serum , Qual NEGATIVE (Negative) Urine Color (YELLOW) Urine Appearance (CLEAR) Urine pH (5-6) Ur Specific Alba (1.005-1.025) Urine Protein (Negative) Urine Ketones (NEGATIVE) Urine Blood (0-5) Norm/ul Urine Nitrite (NEGATIVE) Urine Bilirubin (NEGATIVE) Urine Urobilinogen (0-1) mg/dL Ur Leukocyte Esterase (NEGATIVE) Urine WBC (Auto) (0-5) /HPF Urine RBC (Auto) (0-2) /HPF U Epithel Cells (Auto) (FEW) /HPF Urine Bacteria (Auto) (NEGATIVE) /HPF Urine Mucus (Auto) (NEGATIVE) /HPF Urine Culture Reflexed (NO) Urine Glucose (NEGATIVE) mg/dL Influenza Type A Ag (NEGATIVE) Influenza Type B Ag (NEGATIVE) RSV (PCR) (Negative) SARS-CoV-2 (PCR) (NEGATIVE) Slides for Path Review ABO Group Rh Factor Antibody Screen (NEGATIVE) Crossmatch (COMPATIBLE) 03/15/21 03/15/21 03/15/21 Range/Units 21:41 21:41 22:04 WBC (4.0-10.5) K/mm3 RBC (4.1-5.4) M/mm3 Hgb (12.0-16.0) gm/dl Hct (35-47) % MCV (78-100) fl MCH (26-32) pg MCHC (32-36) g/dl RDW (11.5-14.0) % Plt Count (150-450) K/mm3 MPV (7.5-11.0) fl Gran % (36.0-66.0) % Eos # (Auto) (0-0.5) Absolute Lymphs (auto) (1.0-4.6) Absolute Monos (auto) (0.0-1.3) Lymphocytes % (24.0-44.0) % Monocytes % (0.0-12.0) % Eosinophils % (0.00-5.0) % Basophils % (0.0-0.4) % Absolute Granulocytes (1.4-6.9) Basophils # (0-0.4) D-Dimer 817 H* (215-500) ng/mL Sodium (137-145) mmol/L Potassium (3.5-5.1) mmol/L Chloride (98-107) mmol/L Carbon Dioxide (22-30) mmol/L Anion Gap (5-15) MEQ/L BUN (7-17) mg/dL Creatinine (0.52-1.04) mg/dL Estimated GFR ML/MIN Glucose (74-106) mg/dL Lactic Acid (0.4-2.0) Calcium (8.4-10.2) mg/dL Total Bilirubin (0.2-1.3) mg/dL AST (14-36) U/L ALT (0-35) U/L Alkaline Phosphatase (38-126) U/L Troponin I (0.000-0.034) ng/mL NT-Pro-B Natriuret Pep 31.8 (0-450) pg/mL Serum Total Protein (6.3-8.2) g/dL Albumin (3.5-5.0) g/dL Triglycerides (30-150) mg/dL Cholesterol (50-200) mg/dL LDL Cholesterol (30-100) mg/dL HDL Cholesterol (40-60) mg/dL Heart Disease Risk Ratio Serum , Qual (Negative) Urine Color (YELLOW) Urine Appearance (CLEAR) Urine pH (5-6) Ur Specific Alba (1.005-1.025) Urine Protein (Negative) Urine Ketones (NEGATIVE) Urine Blood (0-5) Norm/ul Urine Nitrite (NEGATIVE) Urine Bilirubin (NEGATIVE) Urine Urobilinogen (0-1) mg/dL Ur Leukocyte Esterase (NEGATIVE) Urine WBC (Auto) (0-5) /HPF Urine RBC (Auto) (0-2) /HPF U Epithel Cells (Auto) (FEW) /HPF Urine Bacteria (Auto) (NEGATIVE) /HPF Urine Mucus (Auto) (NEGATIVE) /HPF Urine Culture Reflexed (NO) Urine Glucose (NEGATIVE) mg/dL Influenza Type A Ag (NEGATIVE) Influenza Type B Ag (NEGATIVE) RSV (PCR) (Negative) SARS-CoV-2 (PCR) (NEGATIVE) Slides for Path Review ABO Group O Rh Factor NEGATIVE Antibody Screen NEGATIVE (NEGATIVE) Crossmatch COMPATIBLE (COMPATIBLE) 03/15/21 03/16/21 03/16/21 Range/Units 22:30 00:39 00:43 WBC (4.0-10.5) K/mm3 RBC (4.1-5.4) M/mm3 Hgb (12.0-16.0) gm/dl Hct (35-47) % MCV (78-100) fl MCH (26-32) pg MCHC (32-36) g/dl RDW (11.5-14.0) % Plt Count (150-450) K/mm3 MPV (7.5-11.0) fl Gran % (36.0-66.0) % Eos # (Auto) (0-0.5) Absolute Lymphs (auto) (1.0-4.6) Absolute Monos (auto) (0.0-1.3) Lymphocytes % (24.0-44.0) % Monocytes % (0.0-12.0) % Eosinophils % (0.00-5.0) % Basophils % (0.0-0.4) % Absolute Granulocytes (1.4-6.9) Basophils # (0-0.4) D-Dimer (215-500) ng/mL Sodium (137-145) mmol/L Potassium (3.5-5.1) mmol/L Chloride (98-107) mmol/L Carbon Dioxide (22-30) mmol/L Anion Gap (5-15) MEQ/L BUN (7-17) mg/dL Creatinine (0.52-1.04) mg/dL Estimated GFR ML/MIN Glucose (74-106) mg/dL Lactic Acid (0.4-2.0) Calcium (8.4-10.2) mg/dL Total Bilirubin (0.2-1.3) mg/dL AST (14-36) U/L ALT (0-35) U/L Alkaline Phosphatase (38-126) U/L Troponin I < 0.012 (0.000-0.034) ng/mL NT-Pro-B Natriuret Pep (0-450) pg/mL Serum Total Protein (6.3-8.2) g/dL Albumin (3.5-5.0) g/dL Triglycerides (30-150) mg/dL Cholesterol (50-200) mg/dL LDL Cholesterol (30-100) mg/dL HDL Cholesterol (40-60) mg/dL Heart Disease Risk Ratio Serum , Qual (Negative) Urine Color YELLOW (YELLOW) Urine Appearance SLIGHTLY CLOUDY (CLEAR) Urine pH 6.0 (5-6) Ur Specific Alba 1.021 (1.005-1.025) Urine Protein NEGATIVE (Negative) Urine Ketones NEGATIVE (NEGATIVE) Urine Blood MODERATE (0-5) Norm/ul Urine Nitrite NEGATIVE (NEGATIVE) Urine Bilirubin NEGATIVE (NEGATIVE) Urine Urobilinogen NEGATIVE (0-1) mg/dL Ur Leukocyte Esterase NEGATIVE (NEGATIVE) Urine WBC (Auto) 0-2 (0-5) /HPF Urine RBC (Auto) 3-5 (0-2) /HPF U Epithel Cells (Auto) RARE (FEW) /HPF Urine Bacteria (Auto) NONE SEEN (NEGATIVE) /HPF Urine Mucus (Auto) SLIGHT (NEGATIVE) /HPF Urine Culture Reflexed NO (NO) Urine Glucose NEGATIVE (NEGATIVE) mg/dL Influenza Type A Ag NEGATIVE (NEGATIVE) Influenza Type B Ag NEGATIVE (NEGATIVE) RSV (PCR) NEGATIVE (Negative) SARS-CoV-2 (PCR) NEGATIVE (NEGATIVE) Slides for Path Review ABO Group Rh Factor Antibody Screen (NEGATIVE) Crossmatch (COMPATIBLE) 03/16/21 03/16/21 03/16/21 Range/Units 02:47 03:37 06:40 WBC (4.0-10.5) K/mm3 RBC (4.1-5.4) M/mm3 Hgb (12.0-16.0) gm/dl Hct (35-47) % MCV (78-100) fl MCH (26-32) pg MCHC (32-36) g/dl RDW (11.5-14.0) % Plt Count (150-450) K/mm3 MPV (7.5-11.0) fl Gran % (36.0-66.0) % Eos # (Auto) (0-0.5) Absolute Lymphs (auto) (1.0-4.6) Absolute Monos (auto) (0.0-1.3) Lymphocytes % (24.0-44.0) % Monocytes % (0.0-12.0) % Eosinophils % (0.00-5.0) % Basophils % (0.0-0.4) % Absolute Granulocytes (1.4-6.9) Basophils # (0-0.4) D-Dimer (215-500) ng/mL Sodium (137-145) mmol/L Potassium (3.5-5.1) mmol/L Chloride (98-107) mmol/L Carbon Dioxide (22-30) mmol/L Anion Gap (5-15) MEQ/L BUN (7-17) mg/dL Creatinine (0.52-1.04) mg/dL Estimated GFR ML/MIN Glucose (74-106) mg/dL Lactic Acid (0.4-2.0) Calcium (8.4-10.2) mg/dL Total Bilirubin (0.2-1.3) mg/dL AST (14-36) U/L ALT (0-35) U/L Alkaline Phosphatase (38-126) U/L Troponin I < 0.012 < 0.012 (0.000-0.034) ng/mL NT-Pro-B Natriuret Pep (0-450) pg/mL Serum Total Protein (6.3-8.2) g/dL Albumin (3.5-5.0) g/dL Triglycerides (30-150) mg/dL Cholesterol (50-200) mg/dL LDL Cholesterol (30-100) mg/dL HDL Cholesterol (40-60) mg/dL Heart Disease Risk Ratio Serum , Qual (Negative) Urine Color (YELLOW) Urine Appearance (CLEAR) Urine pH (5-6) Ur Specific Alba (1.005-1.025) Urine Protein (Negative) Urine Ketones (NEGATIVE) Urine Blood (0-5) Norm/ul Urine Nitrite (NEGATIVE) Urine Bilirubin (NEGATIVE) Urine Urobilinogen (0-1) mg/dL Ur Leukocyte Esterase (NEGATIVE) Urine WBC (Auto) (0-5) /HPF Urine RBC (Auto) (0-2) /HPF U Epithel Cells (Auto) (FEW) /HPF Urine Bacteria (Auto) (NEGATIVE) /HPF Urine Mucus (Auto) (NEGATIVE) /HPF Urine Culture Reflexed (NO) Urine Glucose (NEGATIVE) mg/dL Influenza Type A Ag (NEGATIVE) Influenza Type B Ag (NEGATIVE) RSV (PCR) (Negative) SARS-CoV-2 (PCR) (NEGATIVE) Slides for Path Review ABO Group Rh Factor Antibody Screen (NEGATIVE) Crossmatch COMPATIBLE (COMPATIBLE) 03/16/21 03/16/21 03/16/21 Range/Units 11:55 11:55 11:55 WBC 7.0 (4.0-10.5) K/mm3 RBC 4.36 (4.1-5.4) M/mm3 Hgb 9.8 L (12.0-16.0) gm/dl Hct 33.6 L (35-47) % MCV 77.1 L (78-100) fl MCH 22.5 L (26-32) pg MCHC 29.2 L (32-36) g/dl RDW 16.4 H (11.5-14.0) % Plt Count 441 (150-450) K/mm3 MPV 9.0 (7.5-11.0) fl Gran % 70.3 H (36.0-66.0) % Eos # (Auto) 0.06 (0-0.5) Absolute Lymphs (auto) 1.41 (1.0-4.6) Absolute Monos (auto) 0.55 (0.0-1.3) Lymphocytes % 20.3 L (24.0-44.0) % Monocytes % 7.9 (0.0-12.0) % Eosinophils % 0.9 (0.00-5.0) % Basophils % 0.6 (0.0-0.4) % Absolute Granulocytes 4.89 (1.4-6.9) Basophils # 0.04 (0-0.4) D-Dimer (215-500) ng/mL Sodium 140 (137-145) mmol/L Potassium 4.3 (3.5-5.1) mmol/L Chloride 108 H (98-107) mmol/L Carbon Dioxide 24 (22-30) mmol/L Anion Gap 12.7 (5-15) MEQ/L BUN 7 (7-17) mg/dL Creatinine 0.62 (0.52-1.04) mg/dL Estimated GFR > 60.0 ML/MIN Glucose 88 (74-106) mg/dL Lactic Acid (0.4-2.0) Calcium 8.8 (8.4-10.2) mg/dL Total Bilirubin 0.60 (0.2-1.3) mg/dL AST 21 (14-36) U/L ALT 21 (0-35) U/L Alkaline Phosphatase 88 (38-126) U/L Troponin I < 0.012 (0.000-0.034) ng/mL NT-Pro-B Natriuret Pep (0-450) pg/mL Serum Total Protein 7.2 (6.3-8.2) g/dL Albumin 3.8 (3.5-5.0) g/dL Triglycerides 141 (30-150) mg/dL Cholesterol 160 (50-200) mg/dL LDL Cholesterol 94 (30-100) mg/dL HDL Cholesterol 33 L (40-60) mg/dL Heart Disease Risk Ratio 4.8 Serum , Qual (Negative) Urine Color (YELLOW) Urine Appearance (CLEAR) Urine pH (5-6) Ur Specific Alba (1.005-1.025) Urine Protein (Negative) Urine Ketones (NEGATIVE) Urine Blood (0-5) Norm/ul Urine Nitrite (NEGATIVE) Urine Bilirubin (NEGATIVE) Urine Urobilinogen (0-1) mg/dL Ur Leukocyte Esterase (NEGATIVE) Urine WBC (Auto) (0-5) /HPF Urine RBC (Auto) (0-2) /HPF U Epithel Cells (Auto) (FEW) /HPF Urine Bacteria (Auto) (NEGATIVE) /HPF Urine Mucus (Auto) (NEGATIVE) /HPF Urine Culture Reflexed (NO) Urine Glucose (NEGATIVE) mg/dL Influenza Type A Ag (NEGATIVE) Influenza Type B Ag (NEGATIVE) RSV (PCR) (Negative) SARS-CoV-2 (PCR) (NEGATIVE) Slides for Path Review ABO Group Rh Factor Antibody Screen (NEGATIVE) Crossmatch (COMPATIBLE) - Radiology Exams Ordered Rad Exams-Entire Visit: Radiology Procedures Category Date Time Status CHEST 1 VIEW (PORTABLE) Stat Exams 03/15/21 21:25 Completed CHEST WITH CONTRAST [CT] Stat Exams 03/15/21 22:24 Completed - Procedures and Test Procedures and Tests throughout Hospitalization: Therapy Orders & Screens 03/16/21 02:32 EKG Q8HX2,QAMX3,PRN Comment: Respiratory Therapy Consult ROUTINE Comment: Reason For Exam: 03/17/21 05:00 EKG ONCE Comment: Diagnosis: Anemia requiring transfusion; syncopal episode, tachycardia/chest pain 03/18/21 05:00 EKG ONCE Comment: Diagnosis: Anemia requiring transfusion; syncopal episode, tachycardia/chest pain 03/19/21 05:00 EKG ONCE Comment: Diagnosis: Anemia requiring transfusion; syncopal episode, tachycardia/chest pain - Discharge Disposition: Home, Self-Care Condition: Good Prescriptions: No Action No Reportable Medications [No Reported Medications] Follow up with: MARIA C DIXON [Primary Care Provider] - GRETCHEN ALEXIS [ACTIVE STAFF] - NANCY SOTELO DO [ACTIVE STAFF] -
--- NOTE | 2021-03-16 15:15 | PCM.DCORD ---
- Discharge Disposition: Home, Self-Care Condition: Good Prescriptions: New Ferrous Fumarate/Docusate Na [Radha-Dss Capsule] 1 each PO DAILY #30 Instructions: Anemia Caused by Low Iron, Adult (DC) Follow up with: MARIA C DIXON [Primary Care Provider] - GRETCHEN SIERRA [ACTIVE STAFF] - NANCY ROSE DO [ACTIVE STAFF] - Forms: Work/School Release Form
== END 2021-03-16 16:05 | disposition home or self-care (01) ==
LOC: ED 21:15 → MED SURG 03-16 02:21
PROVIDERS: ADMIT Family Medicine; ATTEND Family Medicine
DX: D64.9 Anemia, unspecified (principal); N92.0 Excessive and frequent menstruation with regular cycle; R07.9 Chest pain, unspecified; R00.0 Tachycardia, unspecified; R55 Syncope and collapse; R06.02 Shortness of breath; R79.89 Other specified abnormal findings of blood chemistry; Z82.49 Family history of ischemic heart disease and other diseases of the circulatory system; Z20.828 Contact with and (suspected) exposure to other viral communicable diseases
CPT/HCPCS: 0241U; 36000; 36415; 36430; 71045; 71260; 80053; 80061; 81001; 81025; 83605; 83721; 83880; 84484; 85025; 85027; 85379; 86850; 86900; 86901; 86922; 93005; 93041; 93268; 94760; 96374; 99285; G0378; P9016; J2405; A9270-GY

== ENCOUNTER 2022-12-06 15:27 | Emergency (ER) | payer MEDICAID ==
[2022-12-06] MEDS ORDERED: TORAdol 30 mg Injection IV ONE (15:50)
[2022-12-06] MEDS ORDERED: Sodium Chloride 0.9% 1000 ML 1,000 ML IV STA (15:50)
[2022-12-06 15:56] VITALS: RESP 18; TEMP 97.6
--- NOTE | 2022-12-06 16:01 | ERPHSYRPT ---
- History of Present Illness Time Seen by Provider: 12/06/22 15:59 Historian: patient Exam Limitations: no limitations Patient Subjective Stated Complaint: pt here for left lower quad pain for 8 days , wiht vaginal bleeding since wednesday, no fever, some nasuea Triage Nursing Assessment: pt alert, resp easy, skin w.d.p, abd soft, no edema noted Physician History: Patient is 27-year-old female with significant past medical history of polycystic ovarian syndrome started having bleeding for last 5 to 6 days. Bleeding was very heavy initially but for last 1 or 2 days it has slowed down. Patient has underwent ablation 1 year ago but she states that she has problems with her menstrual period for long time sometimes her menstrual period last for 4 weeks. She initially thought that it should get better but she started having more and more abdominal pain especially on the left lower abdominal area so she came to the emergency room. Timing/Duration: day(s) Quality: cramping Abdominal Pain Onset Location: LLQ Severity of Pain-Max: moderate Severity of Pain-Current: moderate Previous symptoms: different symptoms Allergies/Adverse Reactions: morphine Adverse Reaction (Severe, Verified 12/06/22 15:38) violently vomit jalapenos Allergy (Mild, Uncoded 12/06/22 15:38) rash Hx Tetanus, Diphtheria Vaccination/Date Given: No Hx Influenza Vaccination/Date Given: No Hx Pneumococcal Vaccination/Date Given: No Immunizations Up to Date: Yes Travel Risk - International Travel Have you traveled outside of the country in past 3 weeks: No - Coronavirus Screening Are you exhibiting any of the following symptoms?: No Close contact with a COVID-19 positive Pt in past 14-21 Days: No - Vaccine Status Have you recieved a Covid-19 vaccination: Yes Stove Refinisher: Moderna - Vaccination Dates Date of 2cond Vaccination (if applicable): n/a - Review of Systems Constitutional: No Fever, No Chills Eyes: No Symptoms Ears, Nose, & Throat: No Symptoms Respiratory: No Cough, No Dyspnea Cardiac: No Chest Pain, No Edema, No Syncope Abdominal/Gastrointestinal: No Abdominal Pain, No Nausea, No Vomiting, No Diarrhea Genitourinary Symptoms: Menorrhagia, Vaginal Bleeding, No Dysuria, No Musculoskeletal: No Back Pain, No Neck Pain Skin: No Rash Neurological: No Dizziness, No Focal Weakness, No Sensory Changes Psychological: No Symptoms Endocrine: No Symptoms All Other Systems: Reviewed and Negative - Past Medical History Pertinent Past Medical History: Yes Neurological History: Migraines ENT History: No Pertinent History Cardiac History: Hypertension Respiratory History: No Pertinent History Endocrine Medical History: Diabetes Type II, Other Musculoskeletal History: No Pertinent History GI Medical History: GERD History: No Pertinent History Psycho-Social History: Depression Female Reproductive Disorders: Menstrual Problems Other Medical History: "elevated thyroid levels," heavy periods - Past Surgical History Past Surgical History: Yes Neuro Surgical History: No Pertinent History Cardiac: No Pertinent History Respiratory: No Pertinent History Gastrointestinal: No Pertinent History Genitourinary: No Pertinent History Musculoskeletal: No Pertinent History Female Surgical History: Section Other Surgical History: c sections x2. ablasion - Social History Smoking Status: Never smoker Exposure to second hand smoke: No Drug Use: none Patient Lives Alone: No - Female History Hx Last Menstrual Period: now Hx Now: No - Nursing Vital Signs Nursing Vital Signs: Initial Vital Signs Temperature 97.6 F 12/06/22 15:50 Pulse Rate 98 H 12/06/22 15:50 Respiratory Rate 18 12/06/22 15:50 Blood Pressure 153/109 12/06/22 15:50 O2 Sat by Pulse Oximetry 97 12/06/22 15:50 Pain Scale Pain Intensity 7 - Physical Exam General Appearance: no apparent distress, alert Eye Exam: PERRL/EOMI, eyes nml inspection Ears, Nose, Throat Exam: normal ENT inspection, pharynx normal, moist mucous membranes Neck Exam: normal inspection, non-tender, supple, full range of motion Respiratory Exam: normal breath sounds, lungs clear, No respiratory distress Cardiovascular Exam: regular rate/rhythm, normal heart sounds Gastrointestinal/Abdomen Exam: soft, No tenderness, No mass Pelvic Exam: not done Rectal Exam: deferred Back Exam: normal inspection, normal range of motion, No CVA tenderness, No vertebral tenderness Extremity Exam: normal inspection, normal range of motion, pelvis stable Neurologic Exam: alert, oriented x 3, cooperative, normal mood/affect, nml cerebellar function, sensation nml, No motor deficits Skin Exam: normal color, warm, dry SpO2: 97 - Course Nursing assessment & vital signs reviewed: Yes - CT Exams Abdomen/Pelvis CT Interpretation: Tele-radiologist Report Ordered Tests: Active Orders 24 hr Category Date Time Status ABDOMEN AND PELVIS W/0 CONTRAS [CT] Stat Exams 12/06/22 16:10 Completed CBC W DIFF Stat Lab 12/06/22 15:53 Completed CMP Stat Lab 12/06/22 15:53 Completed CULTURE,URINE Stat Lab 12/06/22 15:53 Received HCG QUALITATIVE, SERUM Stat Lab 12/06/22 15:53 Completed UA W/RFX UR CULTURE Stat Lab 12/06/22 15:53 Completed Medication Summary Discontinued Medications Generic Name Dose Route Start Last Admin Trade Name Freq PRN Reason Stop Dose Admin Sodium Chloride 1,000 mls @ 999 mls/hr 12/06/22 15:50 12/06/22 17:10 Sodium Chloride 0.9% 1000 Ml IV 12/06/22 16:50 Infused .Q1H1M STA Infusion Sodium Chloride Confirm 12/06/22 16:04 Sodium Chloride 0.9% 1000 Ml Administered 12/06/22 16:05 Dose 1,000 mls @ ud .ROUTE .STK-MED ONE Ceftriaxone Sodium/Dextrose 1 g in 50 mls @ 100 mls/hr 12/06/22 16:22 12/06/22 17:01 Rocephin 1 Gm-D5w 50 Ml Bag IV 12/06/22 16:51 Infused STAT STA Infusion Ceftriaxone Sodium/Dextrose Confirm 12/06/22 16:26 Rocephin 1 Gm-D5w 50 Ml Bag Administered 12/06/22 16:27 Dose 1 g in 50 mls @ ud IV .STK-MED ONE Ketorolac Tromethamine 30 mg 12/06/22 15:50 12/06/22 16:06 Ketorolac Tromethamine 30 Mg/Ml Inj IV 12/06/22 15:51 30 mg STAT ONE Administration Ketorolac Tromethamine Confirm 12/06/22 16:04 Ketorolac Tromethamine 30 Mg/Ml Inj Administered 12/06/22 16:05 Dose 30 mg .ROUTE .STK-MED ONE Lab/Rad Data: Laboratory Result Diagrams 12/06/22 15:53 12/06/22 15:53 Laboratory Results 12/06/22 12/06/22 12/06/22 Range/Units 15:53 15:53 15:53 WBC 8.4 (4.0-10.5) x10^3/uL RBC 4.54 (4.1-5.4) x10^6/uL Hgb 13.3 (12.0-16.0) g/dL Hct 39.8 (35-47) % MCV 87.7 (78-100) fL MCH 29.3 (26-32) pg MCHC 33.4 (32-36) g/dL RDW 12.4 (11.5-14.0) % Plt Count 331 (150-450) x10^3/uL MPV 9.4 (7.5-11.0) fL Gran % 75.9 H (36.0-66.0) % Immature Gran % (Auto) 0.4 (0.00-0.4) % Nucleat RBC Rel Count 0.0 (0.00-0.1) % Eos # (Auto) 0.04 (0-0.5) x10^3/uL Immature Gran # (Auto) 0.03 (0.00-0.03) x10^3u/L Absolute Lymphs (auto) 1.54 (1.0-4.6) x10^3/uL Absolute Monos (auto) 0.37 (0.0-1.3) x10^3/uL Absolute Nucleated RBC 0.00 (0.00-0.01) x10^3u/L Lymphocytes % 18.3 L (24.0-44.0) % Monocytes % 4.4 (0.0-12.0) % Eosinophils % 0.5 (0.00-5.0) % Basophils % 0.5 (0.0-0.4) % Absolute Granulocytes 6.40 (1.4-6.9) x10^3/uL Basophils # 0.04 (0-0.4) x10^3/uL Sodium 140 (137-145) mmol/L Potassium 3.9 (3.5-5.1) mmol/L Chloride 104 (98-107) mmol/L Carbon Dioxide 25 (22-30) mmol/L Anion Gap 15.3 H (5-15) MEQ/L BUN 10 (7-17) mg/dL Creatinine 0.61 (0.52-1.04) mg/dL Estimated GFR > 60.0 ML/MIN Glucose 103 (74-106) mg/dL Calcium 9.2 (8.4-10.2) mg/dL Total Bilirubin 0.50 (0.2-1.3) mg/dL AST 40 H (14-36) U/L ALT 40 H (0-35) U/L Alkaline Phosphatase 99 (38-126) U/L Serum Total Protein 8.7 H (6.3-8.2) g/dL Albumin 4.2 (3.5-5.0) g/dL Serum HCG, Qual NEGATIVE (NEGATIVE) Urine Color (Yellow) Urine Appearance (Clear) Urine pH (4.6-8.0) Ur Specific [place] (1.005-1.030) Urine Protein (Negative) Urine Glucose (UA) (Negative) mg/dL Urine Ketones (Negative) Urine Blood (Negative) Urine Nitrite (Negative) Urine Bilirubin (Negative) Urine Urobilinogen (0.2) mg/dL Ur Leukocyte Esterase (Negative) U Hyaline Cast (Auto) (0-2) /LPF Urine Microscopic RBC (0-5) /HPF Urine Microscopic WBC (0-5) /HPF Ur Epithelial Cells (None Seen) /HPF Urine Bacteria (None Seen) /HPF Urine Culture Reflexed (NO) 12/06/22 Range/Units 15:53 WBC (4.0-10.5) x10^3/uL RBC (4.1-5.4) x10^6/uL Hgb (12.0-16.0) g/dL Hct (35-47) % MCV (78-100) fL MCH (26-32) pg MCHC (32-36) g/dL RDW (11.5-14.0) % Plt Count (150-450) x10^3/uL MPV (7.5-11.0) fL Gran % (36.0-66.0) % Immature Gran % (Auto) (0.00-0.4) % Nucleat RBC Rel Count (0.00-0.1) % Eos # (Auto) (0-0.5) x10^3/uL Immature Gran # (Auto) (0.00-0.03) x10^3u/L Absolute Lymphs (auto) (1.0-4.6) x10^3/uL Absolute Monos (auto) (0.0-1.3) x10^3/uL Absolute Nucleated RBC (0.00-0.01) x10^3u/L Lymphocytes % (24.0-44.0) % Monocytes % (0.0-12.0) % Eosinophils % (0.00-5.0) % Basophils % (0.0-0.4) % Absolute Granulocytes (1.4-6.9) x10^3/uL Basophils # (0-0.4) x10^3/uL Sodium (137-145) mmol/L Potassium (3.5-5.1) mmol/L Chloride (98-107) mmol/L Carbon Dioxide (22-30) mmol/L Anion Gap (5-15) MEQ/L BUN (7-17) mg/dL Creatinine (0.52-1.04) mg/dL Estimated GFR ML/MIN Glucose (74-106) mg/dL Calcium (8.4-10.2) mg/dL Total Bilirubin (0.2-1.3) mg/dL AST (14-36) U/L ALT (0-35) U/L Alkaline Phosphatase (38-126) U/L Serum Total Protein (6.3-8.2) g/dL Albumin (3.5-5.0) g/dL Serum HCG, Qual (NEGATIVE) Urine Color [place] A (Yellow) Urine Appearance Turbid A (Clear) Urine pH 5.5 (4.6-8.0) Ur Specific [place] 1.020 (1.005-1.030) Urine Protein 30 (Negative) Urine Glucose (UA) Negative (Negative) mg/dL Urine Ketones Negative (Negative) Urine Blood Large A (Negative) Urine Nitrite Negative (Negative) Urine Bilirubin Negative (Negative) Urine Urobilinogen 1.0 A (0.2) mg/dL Ur Leukocyte Esterase Moderate A (Negative) U Hyaline Cast (Auto) NONE SEEN (0-2) /LPF Urine Microscopic RBC >100 A (0-5) /HPF Urine Microscopic WBC 21-50 A (0-5) /HPF Ur Epithelial Cells Moderate A (None Seen) /HPF Urine Bacteria Few A (None Seen) /HPF Urine Culture Reflexed YES (NO) CT/ABDOMEN AND PELVIS W/0 CONTRAS CLINICAL HISTORY:left lower quadrant abdominal pain COMPARISON:12/28/2018. TECHNIQUE:CT scan of the abdomen and pelvis was performed without IV contrast. Coronal and sagittal reconstructive images were also obtained. FINDINGS: A scan through the lower chest reveals a left basal calcified nodule of 9.5 mm, mostly hamartoma. Abdomen: The liver is moderately enlarged and measures 25 cm, showing Riedl's lobe. No focal parenchymal abnormality. The gallbladder is normally distended and shows no definite stones. There is no evidence of wall thickening/ pericholecystic collection. The portal vein, intrahepatic biliary radicals, and bile ducts are normal. The spleen, pancreas, and adrenal glands are unremarkable. Small splenic hilar splenule noted. The kidneys are unremarkable. They are normal in size and shape. No calculi or hydronephrosis. The ascending colon, the transverse colon, and the descending colon visualized small bowel loops are unremarkable. There is no evidence of significant enlargement of the mesenteric or retroperitoneal lymph nodes. Pelvis: The urinary bladder is unremarkable. The rectosigmoid colon is unremarkable. The uterus and adnexal regions are unremarkable. The pelvic vasculature is unremarkable. Hazy streaky mesenteric fat planes. noted at pericolonic region at right iliac fossa. Mural fatty infiltration of the colonic loops. No evidence of pelvic lymphadenopathy. No definite bony abnormalities could be depicted. IMPRESSION: 1. Moderate hepatomegaly. 2. Hazy streaky mesentric fat planes. noted at pericolonic region at right iliac fossa. 3. Mural fatty infiltration of the colonic loops, picture suggesting non specific chronic colitis. - Progress Progress: improved, pain not gone completely Counseled pt/family regarding: lab results, diagnosis, need for follow-up, rad results Medical Desision Making - Diagnostic Testing Diagnostic test were ordered, analyzed, and reviewed by me: Yes Radiological Interpretation: Teleradiologist Report - Risk of complications Low Risk: Low risk of morbidity from additional dx testing or treatment The pt has a mod risk of morbidity or mortality based on: Need for prescription drug management - Departure Departure Disposition: Home Clinical Impression: Colitis, acute Abdominal pain Qualifiers: Abdominal location: left lower quadrant Qualified Code(s): R10.32 - Left lower quadrant pain UTI (urinary tract infection) Qualifiers: Urinary tract infection type: acute pyelonephritis Qualified Code(s): N10 - Acute pyelonephritis Condition: Stable Critical Care Time: No Referrals: MARGARET NORMAN DO [Primary Care Provider] - Follow up/PCP as directed Instructions: Kidney Infection, Severe Abdominal Pain, Adult (DC), Colitis Additional Instructions: Discharge/Care Plan JOSAFAT FRANK was seen on 12/06/22 in the Emergency Room. The patient was counseled regarding Diagnosis,Lab results, Imaging studies, need for follow up and when to return to the Emergency Room. Prescriptions given: Discharge Note I have spoken with the patient and/or caregivers. I have explained the patient's condition, diagnosis and treatment plan based on the information available to me at this time. I have answered the patient's and/or caregiver's questions and addressed any concerns. The patient and/or caregivers have as good understanding of the patient's diagnosis, condition and treatment plan as can be expected at this point. The vital signs have been stable. The patient's condition is stable and appropriate for discharge from the emergency department. The patient will pursue further outpatient evaluation with the primary care physician or other designated or consulting physician as outlined in the discharge instructions. The patient and/or caregivers are agreeable to this plan of care and follow-up instructions have been explained in detail. The patient and/or caregivers have received these instruction. The patient/and or caregivers are aware that any significant change in condition or worsening of symptoms should prompt an immediate return to this or the closest emergency department or call 911. JOSAFAT FRANK was seen on 12/06/22 n the Emergency Room. At that time you were treated for an emergent condition, during your visit Laboratory, Radiology and/or other procedures may have been ordered. It is very important that you follow-up with your Primary Care Physician MARGARET NORMAN DO within the next 24-48 hours to review your Emergency Room visit and the final results of testing that was ordered. Some test results such as Urine Cultures, Blood Cultures, and other cultures if ordered will not be finalized for 24-48 hours. If you do not have a Primary Care Provider please call the medical records department at [phone] to obtain a copy of your results or you may sign into our patient portal to obtain these results by visiting us [email or web address] and completing the following steps: 1. Click on the Patient Portal link 2. Click the Patient Self Enrollment Link to complete the enrollment form and entering your 3. Once the enrollment form is completed you will receive an email with a temporary ID and password at the email address you provided. 4. Next choose a user name and password. Your user name must be at least 4 characters long and your password must be at least 4 characters long. 5. Choose a security question from the list and provide your answer to the question. If you already have signed into the Health Portal you may access your Health Care Information 09/11 by the following steps: 1. Login to our website @ [email or web address] 2. Enter your original user name and password. FAQS The [facility] Health Portal is an online tool that contains your Lab Results, Radiology Reports, Visit History, Discharge Instructions and Health Summary Lab and Radiology Results will not be available for 72 hours on the portal. The Portal is a secure site, passwords are encryted and URLs are re-written so they cannot be copied and pasted. You and authorized family members are the only ones who can access your Portal. Also there is a timeout feature that protects your information if you leave the Portal page open. If you have technical difficulty please use the Contact Us link on the page this will allow you to submit any questions you have regarding the Portal or you may contact the Medical Record Department at [phone]. Prescriptions: Ciprofloxacin [Cipro 500 MG] 500 mg PO BIDAC #20 tablet
[2022-12-06] MEDS ORDERED: Sodium Chloride 0.9% 1000 ML 1,000 ML ONE (16:04)
[2022-12-06] MEDS ORDERED: TORAdol 30 mg Injection ONE (16:04)
[2022-12-06 16:06] LABS: BASOPHIL % 0.5 % (0.0-0.4); Basophil (Absolute #) 0.04 x10^3/uL (0-0.4); Eosinophil % 0.5 % (0.00-5.0); Eosinophil (Absolute #) 0.04 x10^3/uL (0-0.5); Hematocrit 39.8 % (35-47); Hemoglobin 13.3 g/dL (12.0-16.0); IMMATURE GRAN # 0.03 x10^3u/L (0.00-0.03); IMMATURE GRAN % 0.4 % (0.00-0.4); Lymphocyte (Absolute #) 1.54 x10^3/uL (1.0-4.6); Lymphocytes % 18.3 % (24.0-44.0); Mean Cell Volume 87.7 fL (78-100); Mean Corpuscular Hemoglobin 29.3 pg (26-32); Mean Corpuscular Hgb Concent. 33.4 g/dL (32-36); Mean Platelet Volume 9.4 fL (7.5-11.0); Monocyte (Absolute #) 0.37 x10^3/uL (0.0-1.3); Monocytes % 4.4 % (0.0-12.0); Neutrophil % 75.9 % (36.0-66.0); Platelet Count 331 x10^3/uL (150-450); Red Blood Count 4.54 x10^6/uL (4.1-5.4); Red Cell Distribution Width 12.4 % (11.5-14.0); White Blood Count 8.4 x10^3/uL (4.0-10.5)
[2022-12-06 16:16] LABS: ADD URINE CULTURE? YES (NO); Appearance Turbid (Clear); Bacteria Few /HPF (None Seen); Bilirubin Negative (Negative); Blood Large (Negative); Epithelial Cells Moderate /HPF (None Seen); Glucose, Urine Negative (Negative); Hyaline Casts NONE SEEN /LPF (0-2); Ketones Negative (Negative); Leukocyte Esterase Moderate (Negative); Nitrite Negative (Negative); Ph 5.5 (4.6-8.0); Protein,Urine Dip 30 (Negative); RBC >100 /HPF (0-5); WBC 21-50 /HPF (0-5)
[2022-12-06 16:18] LABS: HCG SERUM TEST NEGATIVE (NEGATIVE)
[2022-12-06 16:22] LABS: ALBUMIN 4.2 g/dL (3.5-5.0); ALKALINE PHOSPHATASE 99 U/L (38-126); ANION GAP 15.3 MEQ/L (5-15); BLOOD UREA NITROGEN 10 mg/dL (7-17); CHLORIDE 104 mmol/L (98-107); Calcium 9.2 mg/dL (8.4-10.2); Carbon Dioxide 25 mmol/L (22-30); Creatinine 1 0.61 mg/dL (0.52-1.04); EST GLOMERULAR FILTRATION RATE > 60.0 ML/MIN; Glucose 103 mg/dL (74-106); Potassium 3.9 mmol/L (3.5-5.1); SGOT/AST 40 U/L (14-36); SGPT/ALT 40 U/L (0-35); SODIUM 140 mmol/L (137-145); Total Protein 8.7 g/dL (6.3-8.2)
[2022-12-06] MEDS ORDERED: ROCEPHIN 1 Gm-D5w 50 ml Bag** 1 G/50 ML IVPB IV STA (16:22)
[2022-12-06] MEDS ORDERED: ROCEPHIN 1 Gm-D5w 50 ml Bag** 1 G/50 ML IVPB IV ONE (16:26)
--- NOTE | 2022-12-06 17:07 | XRAY ---
CLINICAL HISTORY:left lower quadrant abdominal pain COMPARISON:12/28/2018. TECHNIQUE:CT scan of the abdomen and pelvis was performed without IV contrast. Coronal and sagittal reconstructive images were also obtained. FINDINGS: A scan through the lower chest reveals a left basal calcified nodule of 9.5 mm, mostly hamartoma. Abdomen: The liver is moderately enlarged and measures 25 cm, showing Riedl's lobe. No focal parenchymal abnormality. The gallbladder is normally distended and shows no definite stones. There is no evidence of wall thickening/ pericholecystic collection. The portal vein, intrahepatic biliary radicals, and bile ducts are normal. The spleen, pancreas, and adrenal glands are unremarkable. Small splenic hilar splenule noted. The kidneys are unremarkable. They are normal in size and shape. No calculi or hydronephrosis. The ascending colon, the transverse colon, and the descending colon visualized small bowel loops are unremarkable. There is no evidence of significant enlargement of the mesenteric or retroperitoneal lymph nodes. Pelvis: The urinary bladder is unremarkable. The rectosigmoid colon is unremarkable. The uterus and adnexal regions are unremarkable. The pelvic vasculature is unremarkable. Hazy streaky mesenteric fat planes. noted at pericolonic region at right iliac fossa. Mural fatty infiltration of the colonic loops. No evidence of pelvic lymphadenopathy. No definite bony abnormalities could be depicted. IMPRESSION: 1. Moderate hepatomegaly. 2. Hazy streaky mesentric fat planes. noted at pericolonic region at right iliac fossa. 3. Mural fatty infiltration of the colonic loops, picture suggesting non specific chronic colitis. Electronically Signed by: Quique Washington MD. (12/06/2022 16:05:57 [employer])
[2022-12-06 17:14] VITALS: BP 169/112; PULSE 84
[2022-12-06 17:28] VITALS: O2SAT 97
== END 2022-12-06 17:49 | disposition home or self-care (01) ==
LOC: ED 15:27
DX: K52.9 Noninfective gastroenteritis and colitis, unspecified (principal); R10.32 Left lower quadrant pain; N10 Acute pyelonephritis; I10 Essential (primary) hypertension; E11.9 Type 2 diabetes mellitus without complications
CPT/HCPCS: 36000; 36415; 74176; 80053; 81001; 84703; 85025; 87086; 96365; 96374; 99284; J0696; J1885

== ENCOUNTER 2023-10-22 21:06 | Emergency (ER) | payer OTHER ==
--- NOTE | 2023-10-22 21:08 | ERPHSYRPT ---
- History of Present Illness Time Seen by Provider: 10/22/23 21:08 Source: patient, family Exam Limitations: no limitations Physician History: This is a morbidly obese 28-year-old white female patient of Dr. Worthy who was brought to the emergency department by her spouse after tripping in a hole and falling. Patient has pain in her left ankle/foot junction. Patient has a history of anxiety/depression, hypertension, migraine headaches, diabetes, gastroesophageal reflux disease. Method of Injury: fell, twisted (Left ankle) Occurred: just prior to arrival Quality: constant, aching Severity of Pain-Max: moderate Severity of Pain-Current: moderate Lower Extremities Pain: ankle: left Modifying Factors: Improves With: movement Associated Symptoms: other (Can bear weight but works to do so) Allergies/Adverse Reactions: morphine Adverse Reaction (Severe, Verified 10/22/23 21:16) violently vomit jalapenos Allergy (Mild, Uncoded 12/06/22 15:38) rash Home Medications: Cyclobenzaprine HCl 10 mg [Cyclobenzaprine 10 MG] 1 tab PO TID PRN PRN 10/22/23 [History] Famotidine 20 mg [Pepcid 20 MG] 1 tab PO BID 10/22/23 [History] Venlafaxine HCl ER 75 mg [Effexor XR 75 MG] 1 tab PO DAILY 10/22/23 [History] Hx Tetanus, Diphtheria Vaccination/Date Given: No Hx Influenza Vaccination/Date Given: No Hx Pneumococcal Vaccination/Date Given: No Travel Risk - International Travel Have you traveled outside of the country in past 3 weeks: No - Emerging Infectious Disease Are you exhibiting symptoms associated with any current EIDs: No - Review of Systems Constitutional: No Symptoms Eyes: No Symptoms Ears, Nose, & Throat: No Symptoms Respiratory: No Symptoms Cardiac: No Symptoms Abdominal/Gastrointestinal: No Symptoms Genitourinary Symptoms: No Symptoms Musculoskeletal: Fall, Injury Skin: No Symptoms Neurological: No Symptoms Psychological: No Symptoms Endocrine: No Symptoms Hematologic/Lymphatic: No Symptoms Immunological/Allergic: No Symptoms All Other Systems: Reviewed and Negative - Past Medical History Pertinent Past Medical History: Yes Neurological History: Migraines ENT History: No Pertinent History Cardiac History: Hypertension Respiratory History: No Pertinent History Endocrine Medical History: Diabetes Type II, Other Musculoskeletal History: No Pertinent History GI Medical History: GERD History: No Pertinent History Psycho-Social History: Depression Female Reproductive Disorders: Menstrual Problems Other Medical History: "elevated thyroid levels," heavy periods - Past Surgical History Past Surgical History: Yes Neuro Surgical History: No Pertinent History Cardiac: No Pertinent History Respiratory: No Pertinent History Gastrointestinal: No Pertinent History Genitourinary: No Pertinent History Musculoskeletal: No Pertinent History Female Surgical History: Section Other Surgical History: c sections x2. ablasion - Female History Hx Last Menstrual Period: TWO WEEKS - Social History Smoking Status: Never smoker Exposure to second hand smoke: No Drug Use: none Patient Lives Alone: No - Nursing Vital Signs Nursing Vital Signs: Initial Vital Signs Temperature 98.5 F 10/22/23 21:15 Pulse Rate 123 H 10/22/23 21:15 Respiratory Rate 20 10/22/23 21:15 Blood Pressure 172/115 10/22/23 21:15 O2 Sat by Pulse Oximetry 97 10/22/23 21:15 Pain Scale Pain Intensity 10 - Course Nursing assessment & vital signs reviewed: Yes Ordered Tests: Active Orders 24 hr Category Date Time Status ANKLE (3 VIEWS) Stat Exams 10/22/23 21:14 Completed Medication Summary Discontinued Medications Generic Name Dose Route Start Last Admin Trade Name Derik PRN Reason Stop Dose Admin Hydrocodone Bitart/Acetaminophen 1 tab 10/22/23 22:41 10/22/23 22:52 Hydrocodone/Apap 5/325 1 Tab Tablet PO 10/22/23 22:42 1 tab STAT ONE Administration Hydrocodone Bitart/Acetaminophen Confirm 10/22/23 22:50 Hydrocodone/Apap 5/325 1 Tab Tablet Administered 10/22/23 22:51 Dose 1 tab .ROUTE .STK-MED ONE Ibuprofen 600 mg 10/22/23 22:41 10/22/23 22:53 Ibuprofen 600 Mg Tablet PO 10/22/23 22:42 600 mg STAT ONE Administration Ibuprofen Confirm 10/22/23 22:50 Ibuprofen 600 Mg Tablet Administered 10/22/23 22:51 Dose 600 mg .ROUTE .STK-MED ONE - Progress Progress: unchanged, pain not gone completely, re-examined Progress Note: 10/22/23 22:16 My medical decision making and the assignment of low complexity to this patient's medical issue today is based on review of the patient's past medical history, review of the patient's medication list, review of the patient drug allergy list, history present illness and physical findings on examination. The workup in this patient includes x-ray of the patient's left ankle. Differential diagnosis includes left ankle dislocation, left ankle sprain, left ankle fracture. I interpreted the patient's preliminary report of her left ankle x-ray. It appears to me there is an abnormality in the talus. I am sending this study off to the radiologist to confirm and to obtain a final report. 10/22/23 23:03 The radiologist provided the final report on the patient's left ankle x-ray. Radiologist impression says no acute osseous abnormality. There is soft tissue swelling present Counseled pt/family regarding: diagnosis, need for follow-up, rad results Medical Desision Making - Independent Historian Additional History obtained from: Spouse - Diagnostic Testing Diagnostic test were ordered, analyzed, and reviewed by me: Yes Radiological Interpretation: Interpreted by me, Reviewed by me, Teleradiologist Report - Risk of complications Low Risk: Low risk of morbidity from additional dx testing or treatment - Departure Departure Disposition: Home Clinical Impression: Left ankle sprain Condition: Stable Critical Care Time: No Referrals: MARIA C WORTHY [Primary Care Provider] - Follow up/PCP as directed Additional Instructions: Ice pack/bath left ankle 3 times a day for the next 72 hours. Use your take- home [place] 5/325 as instructed. After your take-home [place] 5/325 has been used, alternate 650 mg Tylenol with 600 mg oral ibuprofen every 4 hours while awake. If you have persistent pain and swelling in the left ankle, follow-up with Dr. Krishnamurthy (podiatry) at our facility or follow-up in the [facility] orthopedic clinic Wednesday through Wednesday 8 AM to 10 AM. It is a walk-in clinic and you do not need to have an appointment. Weightbearing as tolerated. When not ambulating, make sure the left lower extremity is above the level of your heart. Wear the Cirilo wrap for both comfort and to minimize swelling.
[2023-10-22 21:16] VITALS: TEMP 98.5; O2SAT 97
[2023-10-22] MEDS ORDERED: MOTRIN 600 MG ONE (22:50)
[2023-10-22] MEDS ORDERED: NORCO 5/325 MG ONE ×2 (22:50→23:14)
[2023-10-22] MEDS: NORCO 5/325 MG PO ONE ×2 (22:52→23:15)
--- NOTE | 2023-10-22 22:52 | XRAY ---
CLINICAL HISTORY: fall COMPARISON: None. TECHNIQUE: X-ray of the ankle joint AP lateral and oblique views. FINDINGS: Soft tissue swelling is noted around the ankle joint. No acute osseous abnormality is noted. No lytic or sclerotic lesion is seen. Small plantar calcaneal spur is seen. Achilles tendon calcaneal heel enthesophyte is noted. Os peroneum noted. Stieda process of the talus/os trigonum is noted. IMPRESSION: Soft tissue swelling is noted around ankle joint. No acute bony abnormality is seen. DISCLAIMER:A subtle bone abnormality or fracture may not be readily apparent on X-rays, thus clinical correlation and further imaging including follow-up CT, MRI, or follow-up X-rays are advised as needed. Electronically Signed by: Quique Washington MD. (10/22/2023 22:48:59 EDT)
[2023-10-22] MEDS: MOTRIN 600 MG PO ONE (22:53)
[2023-10-22 23:13] VITALS: BP 154/91; PULSE 94; RESP 18
== END 2023-10-22 23:33 | disposition home or self-care (01) ==
LOC: ED 21:06
DX: S93.402A Sprain of unspecified ligament of left ankle, initial encounter (principal); W01.0XXA Fall on same level from slipping, tripping and stumbling without subsequent striking against object, initial encounter; I10 Essential (primary) hypertension; E11.9 Type 2 diabetes mellitus without complications; Z79.899 Other long term (current) drug therapy
CPT/HCPCS: 73610; 99283; A9270-GY

== ENCOUNTER 2024-02-26 21:58 | Emergency (ER) | payer OTHER ==
[2024-02-26 22:22] VITALS: TEMP 103.4
[2024-02-26] MEDS ORDERED: TYLENOL EXTRA STRENGTH 500 MG ONE (22:28)
[2024-02-26] MEDS: TYLENOL EXTRA STRENGTH 500 MG PO STA (22:29)
--- NOTE | 2024-02-26 22:29 | ERPHSYRPT ---
- History of Present Illness Source: patient Exam Limitations: no limitations Patient Subjective Stated Complaint: pt states she has a cough that started approx 2 weeks ago and has been getting worse. states nonproductive. has had fever intermittently for 4 days. states she has substernal chest pain rated 7/10 and worse with deep breath or cough. Triage Nursing Assessment: pt alert and oriented, answers questions approp. pt arrive per ambulance and transfers to stretcher per self. respirations nonlabored. skin hot and dry. occasional nonprod cough Physician History: Patient had a fever for about 4 5 days. She has had a cough for about 2 weeks. The fevers been somewhat intermittent. It is 103 today. She is having some substernal chest pain it is whenever she takes a deep breath or coughs. She says she has had a productive cough.She does not have any nausea vomiting. She does not have a rash. She does not have any dysuria. She has no abdominal pain. Most of her symptoms are respiratory. Nothing really makes his symptoms better except exertion makes it little bit worse. Allergies/Adverse Reactions: morphine Adverse Reaction (Severe, Verified 02/26/24 21:59) violently vomit jalapenos Allergy (Mild, Uncoded 02/26/24 21:59) rash Home Medications: Cyclobenzaprine HCl 10 mg [Cyclobenzaprine 10 MG] 1 tab PO TID PRN PRN 10/22/23 [History] Famotidine 20 mg [Pepcid 20 MG] 1 tab PO BID 10/22/23 [History] Venlafaxine HCl ER 75 mg [Effexor XR 75 MG] 1 tab PO DAILY 10/22/23 [History] Hx Tetanus, Diphtheria Vaccination/Date Given: No (unsure) Hx Influenza Vaccination/Date Given: No Hx Pneumococcal Vaccination/Date Given: No Immunizations Up to Date: No Travel Risk - International Travel Have you traveled outside of the country in past 3 weeks: No - Emerging Infectious Disease Are you exhibiting symptoms associated with any current EIDs: Yes Symptoms: Cough: New Onset, Fever, Headaches/Body Aches/ - Review of Systems Constitutional: Fever Eyes: No Symptoms Ears, Nose, & Throat: No Symptoms Respiratory: Cough Cardiac: No Symptoms Abdominal/Gastrointestinal: No Symptoms Genitourinary Symptoms: No Symptoms Musculoskeletal: No Symptoms Skin: No Symptoms Neurological: No Symptoms All Other Systems: Reviewed and Negative - Past Medical History Pertinent Past Medical History: Yes Neurological History: Migraines ENT History: No Pertinent History Cardiac History: Hypertension Respiratory History: No Pertinent History Endocrine Medical History: Diabetes Type II, Other Musculoskeletal History: No Pertinent History GI Medical History: GERD History: No Pertinent History Psycho-Social History: Depression Female Reproductive Disorders: Menstrual Problems Other Medical History: "elevated thyroid levels," heavy periods - Past Surgical History Past Surgical History: Yes Neuro Surgical History: No Pertinent History Cardiac: No Pertinent History Respiratory: No Pertinent History Gastrointestinal: No Pertinent History Genitourinary: No Pertinent History Musculoskeletal: No Pertinent History Female Surgical History: Section Other Surgical History: c sections x2. ablation - Female History Hx Last Menstrual Period: ablation- no periods Hx Now: No - Social History Smoking Status: Never smoker Exposure to second hand smoke: No Drug Use: none Patient Lives Alone: No - Social Determinants of Health Will the patient participate in the screening: Yes Do you worry about a steady place to live?: No Do you have any problems with any of the following?: No known problems In the past 12 months,have you had to go without utilities?: No Transportation Issues: No Has anyone in your support network made you feel unsafe?: No Have you or anyone in your house had to go without enough: No - Nursing Vital Signs Nursing Vital Signs: Initial Vital Signs Temperature 103.4 F 02/26/24 22:11 Pulse Rate 136 H 02/26/24 22:11 Respiratory Rate 18 02/26/24 22:11 Blood Pressure 173/112 02/26/24 22:11 O2 Sat by Pulse Oximetry 97 02/26/24 22:11 Pain Scale Pain Intensity 7 - Physical Exam General Appearance: no apparent distress Eye Exam: PERRL/EOMI Neck Exam: normal inspection Respiratory Exam: normal breath sounds, chest non-tender, lungs clear Cardiovascular/Chest Exam: normal heart sounds, tachycardia Gastrointestinal/Abdominal Exam: soft, non tender, no distention Extremity Exam: non-tender, normal range of motion Neurologic Exam: alert, oriented x 3 Skin Exam: normal color, warm, dry SpO2: 97 O2 Delivery: Room Air - Course EKG Interpreted by Me: RATE, Sinus Tach, NORMAL QRS, NORMAL ST-T Ordered Tests: Active Orders 24 hr Category Date Time Status CHEST 1 VIEW (PORTABLE) Stat Exams 02/26/24 22:25 Taken BLOOD CULTURE Stat Lab 02/26/24 22:45 Received CBC W DIFF Stat Lab 02/26/24 22:45 Completed HCG QUALITATIVE, SERUM Stat Lab 02/26/24 22:48 Completed Lactic Acid Stat Lab 02/26/24 22:10 Completed UA W/RFX UR CULTURE Stat Lab 02/26/24 22:11 Ordered Medication Summary Discontinued Medications Generic Name Dose Route Start Last Admin Trade Name Derik PRN Reason Stop Dose Admin Acetaminophen 1,000 mg 02/26/24 22:24 02/26/24 22:29 Acetaminophen 500 Mg Tablet PO 02/26/24 22:25 1,000 mg STAT STA Administration Acetaminophen Confirm 02/26/24 22:28 Acetaminophen 500 Mg Tablet Administered 02/26/24 22:29 Dose 1,000 mg .ROUTE .STK-MED ONE Sodium Chloride 1,000 mls @ 999 mls/hr 02/26/24 22:21 02/26/24 22:32 Sodium Chloride 0.9% 1000 Ml IV 02/26/24 23:21 999 mls/hr .Q1H1M STA Administration Sodium Chloride Confirm 02/26/24 22:31 Sodium Chloride 0.9% 1000 Ml Administered 02/26/24 22:32 Dose 1,000 mls @ ud .ROUTE .STK-MED ONE Sodium Chloride 1,000 mls @ 999 mls/hr 02/26/24 23:15 02/26/24 23:37 Sodium Chloride 0.9% 1000 Ml IV 02/27/24 00:15 999 mls/hr .Q1H1M STA Administration Sodium Chloride Confirm 02/26/24 23:18 Sodium Chloride 0.9% 1000 Ml Administered 02/26/24 23:19 Dose 1,000 mls @ ud .ROUTE .STK-MED ONE Lab/Rad Data: Laboratory Result Diagrams 02/26/24 22:45 Laboratory Results 02/26/24 02/26/24 02/26/24 Range/Units 22:48 22:45 22:21 WBC 12.6 H (3.98-10.04) x10^3/uL RBC 4.64 (3.93-5.22) x10^6/uL Hgb 13.6 (11.2-15.7) g/dL Hct 41.7 (34.1-44.9) % MCV 89.9 (79.4-94.8) fL MCH 29.3 (25.6-32.2) pg MCHC 32.6 (32.2-35.5) g/dL RDW 12.1 (11.7-14.4) % Plt Count 301 (182-369) x10^3/uL MPV 9.1 L (9.4-12.3) fL Gran % 85.0 H (34.0-71.1) % Immature Gran % (Auto) 0.6 H (0.001-0.429) % Nucleat RBC Rel Count 0.0 (0.00-0.2) % Eos # (Auto) 0.02 L (0.04-0.36) x10^3/uL Immature Gran # (Auto) 0.07 H (0.001-0.031) x10^3u/L Absolute Lymphs (auto) 1.00 L (1.18-3.74) x10^3/uL Absolute Monos (auto) 0.75 (0.24-0.86) x10^3/uL Absolute Nucleated RBC 0.00 (0.00-0.012) x10^3u/L Lymphocytes % 7.9 L (19.3-51.7) % Monocytes % 6.0 (4.7-12.5) % Eosinophils % 0.2 L (0.7-5.8) % Basophils % 0.3 (0.1-1.2) % Absolute Granulocytes 10.71 H (1.56-6.13) x10^3/uL Basophils # 0.04 (0.01-0.08) x10^3/uL Lactic Acid (0.4-2.0) Serum HCG, Qual NEGATIVE (NEGATIVE) Influenza Type A Ag NEGATIVE (NEGATIVE) Influenza Type B Ag NEGATIVE (NEGATIVE) RSV (PCR) NEGATIVE (NEGATIVE) SARS-CoV-2 (PCR) POSITIVE A (NEGATIVE) 02/26/24 Range/Units 22:10 WBC (3.98-10.04) x10^3/uL RBC (3.93-5.22) x10^6/uL Hgb (11.2-15.7) g/dL Hct (34.1-44.9) % MCV (79.4-94.8) fL MCH (25.6-32.2) pg MCHC (32.2-35.5) g/dL RDW (11.7-14.4) % Plt Count (182-369) x10^3/uL MPV (9.4-12.3) fL Gran % (34.0-71.1) % Immature Gran % (Auto) (0.001-0.429) % Nucleat RBC Rel Count (0.00-0.2) % Eos # (Auto) (0.04-0.36) x10^3/uL Immature Gran # (Auto) (0.001-0.031) x10^3u/L Absolute Lymphs (auto) (1.18-3.74) x10^3/uL Absolute Monos (auto) (0.24-0.86) x10^3/uL Absolute Nucleated RBC (0.00-0.012) x10^3u/L Lymphocytes % (19.3-51.7) % Monocytes % (4.7-12.5) % Eosinophils % (0.7-5.8) % Basophils % (0.1-1.2) % Absolute Granulocytes (1.56-6.13) x10^3/uL Basophils # (0.01-0.08) x10^3/uL Lactic Acid 2.3 H (0.4-2.0) Serum HCG, Qual (NEGATIVE) Influenza Type A Ag (NEGATIVE) Influenza Type B Ag (NEGATIVE) RSV (PCR) (NEGATIVE) SARS-CoV-2 (PCR) (NEGATIVE) - Progress Progress: improved Progress Note: Patient was given a gram of Tylenol. Her fever did decrease. She was also given a liter of fluids. She was given an extra liter of fluids because she was tachycardic. I think that a lot of that had to do with her fever as well. She was stable. She was COVID-positive. Her x-ray was done and it was interpreted by me. There is no acute infiltrate indicating pneumonia. The rest of her lab work looked good as well 2. I think she basically just has COVID. I went to have her treated symptomatically with Tylenol Advil and lots of fluids 02/27/24 00:18 Medical Desision Making - Social Determinants of Health Limited access to: transportation - Diagnostic Testing Diagnostic test were ordered, analyzed, and reviewed by me: Yes Radiological Interpretation: Interpreted by me - Risk of complications Minimal Risk: Minimal risk of morbidity - Departure Departure Disposition: Home Clinical Impression: COVID-19 Condition: Stable Critical Care Time: No Referrals: MARIA C DIXON [Primary Care Provider] - Follow up/PCP as directed Instructions: COVID-19 ED, Fever, Adult (DC)
[2024-02-26] MEDS ORDERED: Sodium Chloride 0.9% 1000 ML 1,000 ML ONE ×2 (22:31→23:18)
[2024-02-26] MEDS: Sodium Chloride 0.9% 1000 ML 1,000 ML IV STA ×2 (22:32→23:37)
[2024-02-26 22:48] LABS: Absolute Neutrophil Ct (ANC) 10.71 x10^3/uL (1.56-6.13); BASOPHIL % 0.3 % (0.1-1.2); Basophil (Absolute #) 0.04 x10^3/uL (0.01-0.08); Eosinophil % 0.2 % (0.7-5.8); Eosinophil (Absolute #) 0.02 x10^3/uL (0.04-0.36); Hematocrit 41.7 % (34.1-44.9); Hemoglobin 13.6 g/dL (11.2-15.7); IMMATURE GRAN # 0.07 x10^3u/L (0.001-0.031); IMMATURE GRAN % 0.6 % (0.001-0.429); Lymphocytes % 7.9 % (19.3-51.7); Mean Cell Volume 89.9 fL (79.4-94.8); Mean Corpuscular Hemoglobin 29.3 pg (25.6-32.2); Mean Corpuscular Hgb Concent. 32.6 g/dL (32.2-35.5); Mean Platelet Volume 9.1 fL (9.4-12.3); Monocyte (Absolute #) 0.75 x10^3/uL (0.24-0.86); Platelet Count 301 x10^3/uL (182-369); Red Blood Count 4.64 x10^6/uL (3.93-5.22); Red Cell Distribution Width 12.1 % (11.7-14.4); White Blood Count 12.6 x10^3/uL (3.98-10.04)
[2024-02-26 23:00] LABS: INFLUENZA A NEGATIVE (NEGATIVE); INFLUENZA B NEGATIVE (NEGATIVE); RESPIRATORY SYNCTIAL VIRUS NEGATIVE (NEGATIVE)
[2024-02-26 23:02] LABS: SARS-CoV-2 Xpert Express POSITIVE (NEGATIVE)
[2024-02-26 23:03] LABS: HCG SERUM TEST NEGATIVE (NEGATIVE)
[2024-02-27 00:21] VITALS: RESP 16
[2024-02-27 00:40] VITALS: BP 131/90; PULSE 116; O2SAT 99
--- NOTE | 2024-02-27 08:50 | XRAY ---
Indication: Fever and cough. Comparison: March 15, 2021 Portable chest inflated and clear. Heart not enlarged. Bony thorax intact. No new/acute findings.
== END 2024-02-27 00:55 | disposition home or self-care (01) ==
LOC: ED 21:58
DX: U07.1 COVID-19 (principal); R50.9 Fever, unspecified; R05.1 Acute cough; R07.9 Chest pain, unspecified; I10 Essential (primary) hypertension; E11.9 Type 2 diabetes mellitus without complications; Z79.899 Other long term (current) drug therapy
CPT/HCPCS: 0241U; 36415; 71045; 83605; 84703; 85025; 87040; 96360; 96361; 99284; A9270-GY